=== PATIENT | male | born 1960 | race Caucasian/White ===

== ENCOUNTER 2017-09-25 12:34 | Inpatient (IN) | payer OTHER ==
[2017-09-25 13:52] VITALS: BMI 26.6
--- NOTE | 2017-09-25 17:30 | HP ---
CIWA Score - CIWA Score Nausea/Vomitin Muscle Tremors: 4-Moderate,w/Arms Extend Anxiety: 3 Agitation: 3 Paroxysmal Sweats: 3 Orientation: 0-Oriented Tacttile Disturbances: 1-Very Mild Itch/Numbness Auditory Disturbances: 1-Very Mild Visual Disturbances: 0-None Headache: 0-None Present CIWA-Ar Total Score: 18 Admission ROS BHS - HPI Chief Complaint: "i just need help" Allergies/Adverse Reactions: Allergies Allergy/AdvReac Type Severity Reaction Status Date / Time No Known Allergies Allergy Verified 09/25/17 17:31 History of Present Illness: 56 y/o male with a long hx of alcohol drinking presents for alcohol deox. Pt admits to drinking alcohol since his twenty's , stopped for 11years because he was in the , started to drink 2 yrs ago. Urine detox positive for opiates but pt states he does not want detox from heroin as he has only used for one month and is not "really addicted to it". Utox positive for THC, cocaine and benzo's. Denies cocaine and benzo use, Denies ever smoking Hx - Liver cirrhosis, Hep c tx Exam Limitations: Intoxication - Ebola screening Have you traveled outside of the country in the last 21 days: No (N) Have you had contact with anyone from an Ebola affected area: No Have you been sick,other than usual withdrawal symptoms: No Do you have a fever: No - Review of Systems Constitutional: Night Sweats EENT: reports: Other (Had laser surgery) Respiratory: reports: No Symptoms reported Cardiac: reports: Other (heart murmur) GI: reports: Poor Fluid Intake, Vomiting : reports: No Symptoms Reported Musculoskeletal: reports: No Symptoms Reported, Other (Generalized scant amount of dry, scaly spots) Integumentary: reports: Flushing Neuro: reports: No Symptoms reported Endocrine: reports: No Symptoms Reported Hematology: reports: Easy Bruising Psychiatric: reports: No Sypmtoms Reported, Orientated x3, Anxious, Depressed Other Systems: Reviewed and Negative Patient History - Patient Medical History Hx Anemia: No Hx Asthma: No Hx Chronic Obstructive Pulmonary Disease (COPD): No Hx Cancer: No Hx Cardiac Disorders: Yes (Murmur) Hx Congestive Heart Failure: No Hx Hypertension: No Hx Hypercholesterolemia: No Hx Pacemaker: No HX Cerebrovascular Accident: No Hx Seizures: No Hx Dementia: No Hx Diabetes: No Hx Gastrointestinal Disorders: Yes (Pancreatitis) Hx Liver Disease: Yes (Cirrhosis) Hx Genitourinary Disorders: No Hx Sexually Transmitted Disorders: No Hx Renal Disease (ESRD): No Hx Thyroid Disease: No Hx Human Immunodeficiency Virus (HIV): No (Tested negative 2 months ago) Hx Hepatitis C: Yes (Completed tx twice - interferon) Hx Depression: Yes (Not on meds) Hx Suicide Attempt: No (Denies Current SI) Hx Bipolar Disorder: No Hx Schizophrenia: No - Patient Surgical History Past Surgical History: No Hx Neurologic Surgery: No Hx Cataract Extraction: No Hx Cardiac Surgery: No Hx Lung Surgery: No Hx Breast Surgery: No Hx Breast Biopsy: No Hx Abdominal Surgery: No Hx Appendectomy: No Hx Cholecystectomy: No Hx Genitourinary Surgery: No Hx Section: No Hx Orthopedic Surgery: No Hx Hysterectomy: No Other Surgical History: Laser surgery - bilateral Anesthesia Reaction: No - PPD History Previous Implant?: Yes Documented Results: Negative w/o proof Implanted On Prior R Admission?: No PPD to be Administered?: Yes - Reproductive History Patient is a Female of Child Bearing Age (11 -55 yrs old): No - Smoking Cessation Smoking history: Never smoked - Substance & Tx. History Hx Alcohol Use: Yes Hx Substance Use: Yes - Substances Abused Alcohol Route: Oral Frequency: Daily Amount used: A pint Age of first use: 25 Date of Last Use: 09/24/17 Heroin Frequency: 1-3 times last 30 days Amount used: 1 bag Age of first use: 56 Date of Last Use: 09/06/17 Family Disease History - Family Disease History Family Disease History: Other: Father (, SI), Mother (), Sister (, Pancreatic CA) Admission Physical Exam S - Vital Signs Vital Signs: Vital Signs - 24 hr 09/25/17 13:49 Temperature 97.8 F Pulse Rate 79 Respiratory 19 Rate Blood Pressure 148/98 - Physical General Appearance: Yes: Moderate Distress, Alcohol on Breath, Irritable, Anxious HEENTM: Yes: Within Normal Limits Respiratory: Yes: Lungs Clear, No Respiratory Distress, No Accessory Muscle Use Neck: Yes: Within Normal Limits Breast: Yes: Breast Exam Deferred Cardiology: Yes: Regular Rate Abdominal: Yes: Non Tender Genitourinary: Yes: Within Normal Limits Back: Yes: Normal Inspection Musculoskeletal: Yes: full range of Motion Extremities: Yes: Delayed Capillary Refill (Nail fungus), Other Neurological: Yes: Alert, Normal Response Integumentary: Yes: Warm Lymphatic: Yes: Within Normal Limits - Diagnostic (1) Alcohol dependence with uncomplicated withdrawal Current Visit: Yes Status: Acute (2) Dehydration Current Visit: Yes Status: Suspected (3) Fungal infection of nail Current Visit: Yes Status: Chronic (4) Depressed affect Current Visit: Yes Status: Acute (5) Hx of hepatitis C Current Visit: Yes Status: Suspected (6) Cirrhosis Current Visit: Yes Status: Chronic (7) History of pancreatitis Current Visit: Yes Status: Acute Cleared for Admission [facility] - Detox or Rehab [facility] Level of Care: Medically Managed Detox Regimen/Protocol: Librium [facility] Breath Alcohol Content Breath Alcohol Content: 0.498 Urine Drug Screen - Results Drug Screen Negative: No Urine Drug Screen Results: THC-Marijuana, CHETNA-Cocaine, BZO-Benzodiazepines
[2017-09-25] MEDS ORDERED: guaiFENesin/D-METHORPHAN HB 10 ML UNIT-DOSE CUPS PO PRN (18:12)
[2017-09-25] MEDS ORDERED: LOPERAMIDE HCL 2 MG CAPSULE PO PRN (18:12)
[2017-09-25] MEDS ORDERED: MENTHOL/PHENOL 1 EACH UD MM PRN (18:12)
[2017-09-25] MEDS ORDERED: MAGNESIUM CITRATE 300 ML BOTTLE PO PRN (18:12)
[2017-09-25] MEDS ORDERED: chlordiazePOXIDE HCL 25 MG CAPSULE PO ONE (18:12)
[2017-09-25] MEDS ORDERED: MAGNESIUM HYDROX 2400MG/30ML ORAL SUSPENSION 30 ML CUP PO PRN (18:12)
[2017-09-25] MEDS ORDERED: P-EPHED 60MG/TRIPROLIDI 2.5MG TABLET PO PRN (18:12)
[2017-09-25] MEDS ORDERED: ACETAMINOPHEN 325 MG TABLET (FP) PO PRN (18:12)
[2017-09-25] MEDS ORDERED: MAG HYDROX/AL HYDROX/SIMETH 30 ML UNIT-DOSE CUP PO PRN (18:12)
[2017-09-25] MEDS ORDERED: MELATONIN 5 MG TABLETS PO PRN (22:00)
[2017-09-25] MEDS: THIAMINE HCL 100 MG TABLET (FP) PO SCH (23:17)
[2017-09-25] MEDS: chlordiazePOXIDE HCL 25 MG CAPSULE PO SCH (23:18)
[2017-09-25] MEDS: prednisoLONE ACETATE 1% OPHTH SUSP 5 ML BOTTLE OD SCH (23:20)
[2017-09-25] MEDS: OFLOXACIN 0.3% OPHTHALMIC SOLUTION 5 ML BOTTLE OD SCH (23:20)
[2017-09-26] MEDS: chlordiazePOXIDE HCL 25 MG CAPSULE PO PRN ×2 (03:37→13:36)
[2017-09-26] MEDS: chlordiazePOXIDE HCL 25 MG CAPSULE PO SCH ×4 (05:26→22:15)
[2017-09-26] MEDS: OFLOXACIN 0.3% OPHTHALMIC SOLUTION 5 ML BOTTLE OD SCH ×5 (06:06→22:15)
[2017-09-26 07:43] LABS: URINE APPEARANCE CLEAR; URINE BILIRUBIN NEGATIVE (<2.0 mg/dL); URINE COLOR DKYELLOW; URINE GLUCOSE (UA) NEGATIVE (NEGATIVE); URINE KETONE NEGATIVE (NEGATIVE); URINE LEUK ESTERASE NEGATIVE (NEGATIVE); URINE NITRITE NEGATIVE (NEGATIVE); URINE PROTEIN NEGATIVE (NEGATIVE); URINE UROBILINOGEN 4.0 E.U/dl mg/dL (0.2-1.0)
--- NOTE | 2017-09-26 09:24 | PN ---
S CIWA - CIWA Score Nausea/Vomitin Muscle Tremors: 3 Anxiety: 3 Agitation: 3 Paroxysmal Sweats: 1-Minimal Palms Moist Orientation: 0-Oriented Tacttile Disturbances: 1-Very Mild Itch/Numbness Auditory Disturbances: 1-Very Mild Visual Disturbances: 1-Very Mild Sensitivity Headache: 2-Mild CIWA-Ar Total Score: 18 [facility] Progress Note (SOAP) Subjective: ALERT,IRRITABLE,ANXIOUS,INTERRUPTED SLEEP,TREMOR Objective: 09/26/17 09:19 Vital Signs Temperature 99.1 F 09/26/17 06:16 Pulse Rate 89 09/26/17 07:58 Respiratory Rate 20 09/26/17 06:16 Blood Pressure 138/78 09/26/17 06:16 O2 Sat by Pulse Oximetry (%) 09/26/17 09:20 EKG NSR WITH OCCASIONAL VPC LVH Laboratory Last Values Urine Color Dkyellow 09/26/17 06:30 Urine Appearance Clear 09/26/17 06:30 Urine pH 7.0 (5.0-8.0) 09/26/17 06:30 Ur Specific [place] 1.013 (1.001-1.035) 09/26/17 06:30 Urine Protein Negative (NEGATIVE) 09/26/17 06:30 Urine Glucose (UA) Negative (NEGATIVE) 09/26/17 06:30 Urine Ketones Negative (NEGATIVE) 09/26/17 06:30 Urine Blood Negative (NEGATIVE) 09/26/17 06:30 Urine Nitrite Negative (NEGATIVE) 09/26/17 06:30 Urine Bilirubin Negative (<2.0 mg/dL) 09/26/17 06:30 Urine Urobilinogen 4.0 e.u/dl mg/dL (0.2-1.0) 09/26/17 06:30 Ur Leukocyte Esterase Negative (NEGATIVE) 09/26/17 06:30 LABS PENDING Assessment: 09/26/17 09:24 WITHDRAWAL SYMPTOM Plan: CONTINUE DETOX
[2017-09-26] MEDS: PRENATAL VITAMINS W/ FOLIC ACID TABLET (FP) PO SCH (10:06)
[2017-09-26] MEDS: prednisoLONE ACETATE 1% OPHTH SUSP 5 ML BOTTLE OD SCH ×4 (10:06→22:16)
--- NOTE | 2017-09-26 10:09 | CONSULT ---
[facility] Psychiatric Consult - Data Date of interview: 09/26/17 Admission source: [facility] Identifying data: This is 56 years old male, divorsed, homeless, living at [facility], unemployed, on PA with no psychiatric hospitalization history, with a long history of alcohol abuse seeking for detox reportins withdrawal symptoms. Utox positive for THC, cocaine and benzo's. Denies cocaine and benzo use, Denies ever smoking Substance Abuse History: Urine Drug Screen Results: THC-Marijuana, CHETNA-Cocaine, BZO-Benzodiazepines. - Smoking Cessation. Smoking history: Never smoked. - Substance & Tx. History. Hx Alcohol Use: Yes. Hx Substance Use: Yes. - Substances Abused. Alcohol. Route: Oral. Frequency: Daily. Amount used: A pint. Age of first use: 25. Date of Last Use: 09/24/17. Heroin. Frequency: 1-3 times last 30 days. Amount used: 1 bag. Age of first use: 56. Date of Last Use: 09/06/17 Medical History: HepC+, Pancreatitis history, Liver Cirrhosis history, Psychiatric History: Patient reports history of depression, no medications tasking prior to admission, denies suicidal and homicidal history. Physical/Sexual Abuse/Trauma History: Denies Additional Comment: Urine Drug Screen Results: THC-Marijuana, CHETNA-Cocaine, BZO- Benzodiazepines. Observation. Detox Unit Care Protocol Mental Status Exam - Mental Status Exam Alert and Oriented to: Person Cognitive Function: Fair Patient Appearance: Unkempt Mood: Sad Affect: Flat Patient Behavior: Sedated Speech Pattern: Delayed Voice Loudness: Mildly Soft/Quiet Thought Process: Circumstantial Thought Disorder: Being Controlled Hallucinations: Denies Suicidal Ideation: Denies Homicidal Ideation: Denies Insight/Judgement: Fair Sleep: Difficulty falling asleep Appetite: Fair Muscle strength/Tone: Mild Hypotonicity Gait/Station: Shuffling Additional Comments: Observation. Detox Unit Care Protocol Psychiatric Findings - Problem List ([place] 1, 2,3) (1) Heroin abuse Current Visit: Yes Status: Acute (2) Cannabis abuse Current Visit: Yes Status: Acute (3) Cocaine abuse Current Visit: Yes Status: Acute (4) Drug-induced mood disorder Current Visit: Yes Status: Acute (5) Alcohol dependence with uncomplicated withdrawal Current Visit: Yes Status: Acute - Initial Treatment Plan Initial Treatment Plan: Observation. Detox Unit Care Protocol
[2017-09-26 10:49] LABS: ANION GAP 9 (8-16); BLOOD UREA NITROGEN 5 mg/dL (7-18); CALCIUM 7.7 mg/dL (8.5-10.1); CHLORIDE 104 mmol/L (98-107); CO2 26 mmol/L (21-32); GLUCOSE,RANDOM 97 mg/dL (74-106); POTASSIUM 3.3 mmol/L (3.5-5.1); SGOT/AST 97 U/L (15-37); SGPT/ALT 43 U/L (12-78); SODIUM 139 mmol/L (136-145)
[2017-09-26 10:54] LABS: ALK PHOS 161 U/L (45-117); CREATININE 0.5 mg/dL (0.7-1.3); TOT PROT 6.9 g/dl (6.4-8.2)
[2017-09-26 10:56] LABS: HEMATOCRIT 38.9 % (35.4-49); HEMOGLOBIN 13.5 GM/dL (11.7-16.9); MCH 32.7 pg (25.7-33.7); MCHC 34.6 g/dl (32.0-35.9); MEAN CELL VOLUME 94.5 fl (80-96); MEAN PLT VOLUME 7.9 fl (7.5-11.1); PLATELET COUNT 69 K/MM3 (134-434); RBC 4.11 M/mm3 (4.00-5.60); RDW 13.1 % (11.9-15.9)
[2017-09-26] MEDS: ONDANSETRON *ODT* 4 MG TABLET SL PRN (11:20)
--- NOTE | 2017-09-26 21:52 | PN ---
[facility] Progress Note Note: Patient c/o of pain on the left elbow. As per patient he injured himself two months ago and the skin on the elbow was opened by piece of metal. As a result of his injury he went to to the ED two months ago and was given tetanus shot. Patient denies CP, SOB, vertigo or paresthesia. Vital Signs Temperature 99.3 F 09/26/17 17:07 Pulse Rate 69 09/26/17 17:48 Respiratory Rate 19 09/26/17 17:07 Blood Pressure 139/84 09/26/17 17:07 O2 Sat by Pulse Oximetry (%) Laboratory Last Values WBC 3.0 K/mm3 (4.0-10.0) L 09/26/17 07:00 RBC 4.11 M/mm3 (4.00-5.60) 09/26/17 07:00 Hgb 13.5 GM/dL (11.7-16.9) 09/26/17 07:00 Hct 38.9 % (35.4-49) 09/26/17 07:00 MCV 94.5 fl (80-96) 09/26/17 07:00 MCH 32.7 pg (25.7-33.7) 09/26/17 07:00 MCHC 34.6 g/dl (32.0-35.9) 09/26/17 07:00 RDW 13.1 % (11.9-15.9) 09/26/17 07:00 Plt Count 69 K/MM3 (134-434) L 09/26/17 07:00 MPV 7.9 fl (7.5-11.1) 09/26/17 07:00 Platelet Comment No clumping noted 09/26/17 07:00 Sodium 139 mmol/L (136-145) 09/26/17 07:00 Potassium 3.3 mmol/L (3.5-5.1) L 09/26/17 07:00 Chloride 104 mmol/L (98-107) 09/26/17 07:00 Carbon Dioxide 26 mmol/L (21-32) 09/26/17 07:00 Anion Gap 9 (8-16) 09/26/17 07:00 BUN 5 mg/dL (7-18) L 09/26/17 07:00 Creatinine 0.5 mg/dL (0.7-1.3) L 09/26/17 07:00 Creat Clearance w eGFR > 60 (>60) 09/26/17 07:00 Random Glucose 97 mg/dL (74-106) 09/26/17 07:00 Calcium 7.7 mg/dL (8.5-10.1) L 09/26/17 07:00 Total Bilirubin 2.0 mg/dL (0.2-1.0) H 09/26/17 07:00 AST 97 U/L (15-37) H 09/26/17 07:00 ALT 43 U/L (12-78) 09/26/17 07:00 Alkaline Phosphatase 161 U/L (45-117) H 09/26/17 07:00 Total Protein 6.9 g/dl (6.4-8.2) 09/26/17 07:00 Albumin 3.0 g/dl (3.4-5.0) L 09/26/17 07:00 Urine Color Dkyellow 09/26/17 06:30 Urine Appearance Clear 09/26/17 06:30 Urine pH 7.0 (5.0-8.0) 09/26/17 06:30 Ur Specific [place] 1.013 (1.001-1.035) 09/26/17 06:30 Urine Protein Negative (NEGATIVE) 09/26/17 06:30 Urine Glucose (UA) Negative (NEGATIVE) 09/26/17 06:30 Urine Ketones Negative (NEGATIVE) 09/26/17 06:30 Urine Blood Negative (NEGATIVE) 09/26/17 06:30 Urine Nitrite Negative (NEGATIVE) 09/26/17 06:30 Urine Bilirubin Negative (<2.0 mg/dL) 09/26/17 06:30 Urine Urobilinogen 4.0 e.u/dl mg/dL (0.2-1.0) 09/26/17 06:30 Ur Leukocyte Esterase Negative (NEGATIVE) 09/26/17 06:30 RPR Titer Nonreactive (NONREACTIVE) 09/26/17 07:00 A/P Patient AOx3 self directing normal HR and rhythm No adventitious breath sounds Normal BS x 4 non-tender non-distended left elbow: + erythema, + tenderness touch, + hot to touch, + mild serous sanguineous discharge - Hypokelemia - Cellulitis left elbow - Abnormal Labs Plan: 1. K-emery 20 mg order 2. HIV testing offered to patient, patient decline. Reports had HIV test 6 months ago and results were negative. Repeat CBC and CMP in the AM 3. left elbow, cleanse with NS, dress with gauze qd/ PRN, keep area clean and dry. mupirocin top cream BID, keflex 500mg q6h x 7 days 4. increase fluids 5. Continue to monitor
[2017-09-26] MEDS: THIAMINE HCL 100 MG TABLET (FP) PO SCH (22:15)
[2017-09-26] MEDS: CEPHALEXIN MONOHYDRATE 500 MG CAPSULE (UD) PO SCH (22:18)
[2017-09-26] MEDS: MUPIROCIN CA 2% TOPICAL CREAM 15 GM TUBE TP SCH (23:00)
--- NOTE | 2017-09-26 23:48 | EKG ---
Test Reason : Blood Pressure : / mmHG Vent. Rate : 086 BPM Atrial Rate : 086 BPM P-R Int : 196 ms QRS Dur : 110 ms QT Int : 378 ms P-R-T Axes : 053 -18 044 degrees QTc Int : 452 ms SINUS RHYTHM WITH OCCASIONAL PREMATURE VENTRICULAR COMPLEXES MODERATE VOLTAGE CRITERIA FOR LVH, MAY BE NORMAL VARIANT BORDERLINE ECG NO PREVIOUS ECGS AVAILABLE Confirmed by LORENA CHANG MD ([id number]) on 09/26/2017 11:48:12 PM Referred By: Confirmed By:LORENA CHANG MD
[2017-09-27] MEDS: chlordiazePOXIDE HCL 25 MG CAPSULE PO PRN ×2 (02:52→08:55)
[2017-09-27] MEDS: chlordiazePOXIDE HCL 25 MG CAPSULE PO SCH ×3 (05:12→17:52)
[2017-09-27] MEDS: CEPHALEXIN MONOHYDRATE 500 MG CAPSULE (UD) PO SCH ×3 (05:12→17:52)
[2017-09-27] MEDS: IBUPROFEN 400 MG TABLET (FP) PO PRN (05:15)
[2017-09-27] MEDS: OFLOXACIN 0.3% OPHTHALMIC SOLUTION 5 ML BOTTLE OD SCH ×5 (05:19→23:15)
[2017-09-27] MEDS ORDERED: cloNIDine HCL 0.1 MG TABLET PO ONE (06:34)
--- NOTE | 2017-09-27 06:45 | PN ---
[facility] Progress Note Note: Patient's blood pressure was B/P 157/96. Patient is asymptomatic. Vital Signs Temperature 99.9 F H 09/27/17 06:43 Pulse Rate 81 09/27/17 06:43 Respiratory Rate 20 09/27/17 06:43 Blood Pressure 157/96 09/27/17 06:43 O2 Sat by Pulse Oximetry (%) Action: Clonidine 0.1mg tablet oral odered
--- NOTE | 2017-09-27 09:17 | PN ---
S Progress Note (SOAP) Subjective: ALERT,IRRITABLE,ANXIOUS,INFECTED WOUND LEFT ELBOW TREATED AT [facility] COMING TO DETOX Objective: 09/27/17 09:16 Vital Signs Temperature 98.8 F 09/27/17 09:07 Pulse Rate 89 09/27/17 09:07 Respiratory Rate 20 09/27/17 09:07 Blood Pressure 137/85 09/27/17 09:07 O2 Sat by Pulse Oximetry (%) Assessment: 09/27/17 09:16 WITHDRAWAL SYMPTOM Plan: CONTINUE DETOX
[2017-09-27] MEDS ORDERED: POTASSIUM CHLORIDE TABS 20 MEQ TABLET.ER (FP) PO SCH (10:00)
[2017-09-27 10:03] LABS: BASO % 1.1 % (0-2.0); EOS % 2.2 % (0-4.5); HEMATOCRIT 40.2 % (35.4-49); HEMOGLOBIN 13.9 GM/dL (11.7-16.9); MCH 32.9 pg (25.7-33.7); MCHC 34.7 g/dl (32.0-35.9); MEAN CELL VOLUME 94.9 fl (80-96); MEAN PLT VOLUME 8.2 fl (7.5-11.1); MONO % 12.6 % (3.8-10.2); NEUT % 73.1 % (42.8-82.8); PLATELET COUNT 62 K/MM3 (134-434); RBC 4.24 M/mm3 (4.00-5.60); RDW 12.9 % (11.9-15.9); WHITE BLOOD COUNT 2.9 K/mm3 (4.0-10.0)
[2017-09-27] MEDS: MUPIROCIN CA 2% TOPICAL CREAM 15 GM TUBE TP SCH (10:15)
[2017-09-27 10:18] LABS: CHLORIDE 103 mmol/L (98-107); POTASSIUM 3.7 mmol/L (3.5-5.1); SODIUM 138 mmol/L (136-145)
[2017-09-27] MEDS: BACITRACIN 0.9 GM PACKET TP SCH ×2 (10:47→23:13)
[2017-09-27] MEDS: prednisoLONE ACETATE 1% OPHTH SUSP 5 ML BOTTLE OD SCH ×4 (10:47→23:14)
[2017-09-27] MEDS: PRENATAL VITAMINS W/ FOLIC ACID TABLET (FP) PO SCH (10:47)
[2017-09-27 11:06] LABS: ALBUMIN 3.4 g/dl (3.4-5.0); ALK PHOS 171 U/L (45-117); ANION GAP 10 (8-16); BLOOD UREA NITROGEN 6 mg/dL (7-18); CALCIUM 8.7 mg/dL (8.5-10.1); CO2 25 mmol/L (21-32); CREATININE 0.6 mg/dL (0.7-1.3); GLUCOSE,RANDOM 124 mg/dL (74-106); SGOT/AST 75 U/L (15-37); SGPT/ALT 46 U/L (12-78); TOT PROT 7.5 g/dl (6.4-8.2)
[2017-09-27] MEDS: hydrOXYzine PAMOATE 50 MG CAPSULE (FP) PO PRN ×2 (14:06→17:52)
--- NOTE | 2017-09-27 18:54 | PN ---
S Progress Note Note: Vital Signs Temperature 97.7 F 09/27/17 18:07 Pulse Rate 72 09/27/17 18:07 Respiratory Rate 18 09/27/17 18:07 Blood Pressure 141/88 09/27/17 18:07 O2 Sat by Pulse Oximetry (%)
--- NOTE | 2017-09-27 19:05 | PN ---
[facility] Progress Note Note: Report received by ABENA Sales patient is confuse. Laboratory Last Values WBC 2.9 K/mm3 (4.0-10.0) L 09/27/17 07:30 RBC 4.24 M/mm3 (4.00-5.60) 09/27/17 07:30 Hgb 13.9 GM/dL (11.7-16.9) 09/27/17 07:30 Hct 40.2 % (35.4-49) 09/27/17 07:30 MCV 94.9 fl (80-96) 09/27/17 07:30 MCH 32.9 pg (25.7-33.7) 09/27/17 07:30 MCHC 34.7 g/dl (32.0-35.9) 09/27/17 07:30 RDW 12.9 % (11.9-15.9) 09/27/17 07:30 Plt Count 62 K/MM3 (134-434) L 09/27/17 07:30 MPV 8.2 fl (7.5-11.1) 09/27/17 07:30 Neutrophils % 73.1 % (42.8-82.8) 09/27/17 07:30 Lymphocytes % 11.0 % (8-40) 09/27/17 07:30 Monocytes % 12.6 % (3.8-10.2) H 09/27/17 07:30 Eosinophils % 2.2 % (0-4.5) 09/27/17 07:30 Basophils % 1.1 % (0-2.0) 09/27/17 07:30 Nucleated RBC % 0 % (0-0) 09/27/17 07:30 Platelet Comment No clumping noted 09/26/17 07:00 Sodium 138 mmol/L (136-145) 09/27/17 07:30 Potassium 3.7 mmol/L (3.5-5.1) 09/27/17 07:30 Chloride 103 mmol/L (98-107) 09/27/17 07:30 Carbon Dioxide 25 mmol/L (21-32) 09/27/17 07:30 Anion Gap 10 (8-16) 09/27/17 07:30 BUN 6 mg/dL (7-18) L 09/27/17 07:30 Creatinine 0.6 mg/dL (0.7-1.3) L 09/27/17 07:30 Creat Clearance w eGFR > 60 (>60) 09/27/17 07:30 Random Glucose 124 mg/dL (74-106) H D 09/27/17 07:30 Calcium 8.7 mg/dL (8.5-10.1) 09/27/17 07:30 Total Bilirubin 4.0 mg/dL (0.2-1.0) H D 09/27/17 07:30 AST 75 U/L (15-37) H D 09/27/17 07:30 ALT 46 U/L (12-78) 09/27/17 07:30 Alkaline Phosphatase 171 U/L (45-117) H 09/27/17 07:30 Total Protein 7.5 g/dl (6.4-8.2) 09/27/17 07:30 Albumin 3.4 g/dl (3.4-5.0) 09/27/17 07:30 Urine Color Dkyellow 09/26/17 06:30 Urine Appearance Clear 09/26/17 06:30 Urine pH 7.0 (5.0-8.0) 09/26/17 06:30 Ur Specific [place] 1.013 (1.001-1.035) 09/26/17 06:30 Urine Protein Negative (NEGATIVE) 09/26/17 06:30 Urine Glucose (UA) Negative (NEGATIVE) 09/26/17 06:30 Urine Ketones Negative (NEGATIVE) 09/26/17 06:30 Urine Blood Negative (NEGATIVE) 09/26/17 06:30 Urine Nitrite Negative (NEGATIVE) 09/26/17 06:30 Urine Bilirubin Negative (<2.0 mg/dL) 09/26/17 06:30 Urine Urobilinogen 4.0 e.u/dl mg/dL (0.2-1.0) 09/26/17 06:30 Ur Leukocyte Esterase Negative (NEGATIVE) 09/26/17 06:30 RPR Titer Nonreactive (NONREACTIVE) 09/26/17 07:00 Patient AO x Person. in no apparent distress, irate, patient pacing in the unit , needs frequent redirecting, and frequently asking for the door, patient unaware of time on the unit reports that he's been her at [place] for a several months. Patient was question as to here he was at and reports he's somewhere in [place] and he knows his away around. As per staff on the unit mental status keeps changing through out the day. v/s bp 157/88, P112, rr19, T 97.9 No adventitious breath sounds No adventitious breath sounds Normal Heart Rate and rhythm No edema, + pulses throughout Plan: Patient to be transfer [facility] for altered mental status for further evaluation, patient endorse to Dr. Brower.
[2017-09-27] MEDS: chlordiazePOXIDE 5 MG CAPSULE PO SCH (23:14)
[2017-09-27] MEDS: THIAMINE HCL 100 MG TABLET (FP) PO SCH (23:15)
--- NOTE | 2017-09-27 23:38 | PN ---
[facility] Progress Note Note: SPOKE TO DR. GRIMES FROM [facility]. CLIENT WILL BE RETURNING. ELEVATED AMMONIA LEVEL 40.99 AND [address] NOTED ON HEAD CT. Pt to receive Lactulose 20 grams daily, as well as Bactrim DS one tab BID for sinusitis and left elbow infection.
[2017-09-28] MEDS: chlordiazePOXIDE HCL 25 MG CAPSULE PO PRN ×3 (00:08→13:21)
[2017-09-28] MEDS: hydrOXYzine PAMOATE 50 MG CAPSULE (FP) PO PRN ×3 (02:48→18:28)
--- NOTE | 2017-09-28 06:39 | PN ---
[facility] Progress Note Note: CLIENT PLACED ON 1:1 OBSERVATION FOR SAFETY DUE TO ONGOING CONFUSION/ ALTERED MENTAL STATUS.
[2017-09-28] MEDS: chlordiazePOXIDE 5 MG CAPSULE PO SCH ×3 (06:49→17:28)
[2017-09-28] MEDS: OFLOXACIN 0.3% OPHTHALMIC SOLUTION 5 ML BOTTLE OD SCH ×5 (06:49→22:08)
[2017-09-28] MEDS: ONDANSETRON *ODT* 4 MG TABLET SL PRN (09:15)
[2017-09-28] MEDS ORDERED: LACTULOSE 20 GM/30 ML UDC (FOR ORAL USE ONLY) PO SCH (10:00)
[2017-09-28] MEDS: PRENATAL VITAMINS W/ FOLIC ACID TABLET (FP) PO SCH (10:03)
[2017-09-28] MEDS: SULFAMETHOXAZOLE/TRIMETHOPRIM 800MG/160MG D.S. TABLET PO SCH ×2 (10:03→22:05)
[2017-09-28] MEDS: BACITRACIN 0.9 GM PACKET TP SCH ×2 (10:03→22:05)
[2017-09-28] MEDS: prednisoLONE ACETATE 1% OPHTH SUSP 5 ML BOTTLE OD SCH ×4 (10:04→22:07)
--- NOTE | 2017-09-28 10:37 | PN ---
S Progress Note (SOAP) Subjective: ALERT,ORIENTED X3,MEDICALLY CLEAR FROM [facility] ER TO RETURN TO DETOX IRRITABLE,INTERRUPTED SLEEP Objective: 09/28/17 10:35 Vital Signs Temperature 97.7 F 09/28/17 09:10 Pulse Rate 105 H 09/28/17 09:10 Respiratory Rate 18 09/28/17 09:10 Blood Pressure 141/98 09/28/17 09:10 O2 Sat by Pulse Oximetry (%) ON LACTULOSE 20 GRAMS PO DAILY WILL INCREASE TO BID Assessment: 09/28/17 10:36 WITHDRAWAL SYMPTOM Plan: CONTINUE DETOX,D/C ONE ON ONE,INCREASE LACTULOSE TO 20 GRAMS PO BID, DISCHARGE IN AM
[2017-09-28] MEDS: IBUPROFEN 400 MG TABLET (FP) PO PRN (15:16)
[2017-09-28] MEDS: chlordiazePOXIDE HCL 10 MG CAPSULE PO SCH (22:05)
[2017-09-28] MEDS: LACTULOSE 20 GM/30 ML UDC (FOR ORAL USE ONLY) PO SCH (22:09)
[2017-09-28] MEDS: THIAMINE HCL 100 MG TABLET (FP) PO SCH (22:09)
[2017-09-28] MEDS ORDERED: HYDROCORTISONE 1% TOPICAL LOTION 118 ML BOTTLE TP PRN (22:34)
--- NOTE | 2017-09-28 22:37 | PN ---
[facility] Progress Note Note: chronic pruritus rash. As per patient rash has been present for two months. Vital Signs Temperature 97.5 F L 09/28/17 18:41 Pulse Rate 72 09/28/17 18:41 Respiratory Rate 18 09/28/17 18:41 Blood Pressure 123/69 09/28/17 18:41 O2 Sat by Pulse Oximetry (%) AOX3 No skin break down + rash hydrocortisone top cream BID PRN increase fluids continue to monitor
[2017-09-29] MEDS: hydrOXYzine PAMOATE 50 MG CAPSULE (FP) PO PRN ×2 (02:41→12:12)
[2017-09-29] MEDS: OFLOXACIN 0.3% OPHTHALMIC SOLUTION 5 ML BOTTLE OD SCH ×2 (05:25→12:12)
[2017-09-29] MEDS: chlordiazePOXIDE HCL 10 MG CAPSULE PO SCH ×2 (05:25→12:12)
[2017-09-29] MEDS: IBUPROFEN 400 MG TABLET (FP) PO PRN (08:22)
--- NOTE | 2017-09-29 08:42 | PN ---
S Progress Note (SOAP) Subjective: ALERT,ORIENTED,NO COMPLAINT Objective: 09/29/17 08:44 Vital Signs Temperature 97.9 F 09/29/17 06:00 Pulse Rate 83 09/29/17 06:00 Respiratory Rate 18 09/29/17 06:00 Blood Pressure 138/82 09/29/17 06:00 O2 Sat by Pulse Oximetry (%) Assessment: 09/29/17 08:44 DETOX COMPLETED,NO WITHDRAWAL SYMPTOM Plan: DISCHARGE TODAY,FOLLOW UP WITH [facility]
--- NOTE | 2017-09-29 08:51 | DS ---
[facility] Detox Discharge Summary Admission Date: 09/25/17 Discharge Date: 09/29/17 - History Present History: Alcohol Dependence Additional Comments: FOLLOW UP WITH [facility] Pertinent Past History: HEPATITIS C HISTORY OF PANCREATITIS CELLULITIS LEFT ELBOW INFECTED WOUND LEFT ELBOW - Physical Exam Results Vital Signs: Vital Signs Temperature 97.9 F 09/29/17 06:00 Pulse Rate 83 09/29/17 06:00 Respiratory Rate 18 09/29/17 06:00 Blood Pressure 138/82 09/29/17 06:00 O2 Sat by Pulse Oximetry (%) Pertinent Admission Physical Exam Findings: WITHDRAWAL SIGNS AND SYMPTOMS Vital Signs Temperature 97.9 F 09/29/17 06:00 Pulse Rate 83 09/29/17 06:00 Respiratory Rate 18 09/29/17 06:00 Blood Pressure 138/82 09/29/17 06:00 O2 Sat by Pulse Oximetry (%) Laboratory Last Values WBC 2.9 K/mm3 (4.0-10.0) L 09/27/17 07:30 RBC 4.24 M/mm3 (4.00-5.60) 09/27/17 07:30 Hgb 13.9 GM/dL (11.7-16.9) 09/27/17 07:30 Hct 40.2 % (35.4-49) 09/27/17 07:30 MCV 94.9 fl (80-96) 09/27/17 07:30 MCH 32.9 pg (25.7-33.7) 09/27/17 07:30 MCHC 34.7 g/dl (32.0-35.9) 09/27/17 07:30 RDW 12.9 % (11.9-15.9) 09/27/17 07:30 Plt Count 62 K/MM3 (134-434) L 09/27/17 07:30 MPV 8.2 fl (7.5-11.1) 09/27/17 07:30 Neutrophils % 73.1 % (42.8-82.8) 09/27/17 07:30 Lymphocytes % 11.0 % (8-40) 09/27/17 07:30 Monocytes % 12.6 % (3.8-10.2) H 09/27/17 07:30 Eosinophils % 2.2 % (0-4.5) 09/27/17 07:30 Basophils % 1.1 % (0-2.0) 09/27/17 07:30 Nucleated RBC % 0 % (0-0) 09/27/17 07:30 Platelet Comment No clumping noted 09/26/17 07:00 Sodium 138 mmol/L (136-145) 09/27/17 07:30 Potassium 3.7 mmol/L (3.5-5.1) 09/27/17 07:30 Chloride 103 mmol/L (98-107) 09/27/17 07:30 Carbon Dioxide 25 mmol/L (21-32) 09/27/17 07:30 Anion Gap 10 (8-16) 09/27/17 07:30 BUN 6 mg/dL (7-18) L 09/27/17 07:30 Creatinine 0.6 mg/dL (0.7-1.3) L 09/27/17 07:30 Creat Clearance w eGFR > 60 (>60) 09/27/17 07:30 Random Glucose 124 mg/dL (74-106) H D 09/27/17 07:30 Calcium 8.7 mg/dL (8.5-10.1) 09/27/17 07:30 Total Bilirubin 4.0 mg/dL (0.2-1.0) H D 09/27/17 07:30 AST 75 U/L (15-37) H D 09/27/17 07:30 ALT 46 U/L (12-78) 09/27/17 07:30 Alkaline Phosphatase 171 U/L (45-117) H 09/27/17 07:30 Total Protein 7.5 g/dl (6.4-8.2) 09/27/17 07:30 Albumin 3.4 g/dl (3.4-5.0) 09/27/17 07:30 Urine Color Dkyellow 09/26/17 06:30 Urine Appearance Clear 09/26/17 06:30 Urine pH 7.0 (5.0-8.0) 09/26/17 06:30 Ur Specific [place] 1.013 (1.001-1.035) 09/26/17 06:30 Urine Protein Negative (NEGATIVE) 09/26/17 06:30 Urine Glucose (UA) Negative (NEGATIVE) 09/26/17 06:30 Urine Ketones Negative (NEGATIVE) 09/26/17 06:30 Urine Blood Negative (NEGATIVE) 09/26/17 06:30 Urine Nitrite Negative (NEGATIVE) 09/26/17 06:30 Urine Bilirubin Negative (<2.0 mg/dL) 09/26/17 06:30 Urine Urobilinogen 4.0 e.u/dl mg/dL (0.2-1.0) 09/26/17 06:30 Ur Leukocyte Esterase Negative (NEGATIVE) 09/26/17 06:30 RPR Titer Nonreactive (NONREACTIVE) 09/26/17 07:00 - Treatment Hospital Course: Detox Protocol Followed, Detoxed Safely, Responded well, Discharged Condition Good, Rehab Referral Accepted Patient has Accepted a Rehab Referral to: [facility] - Medication Discharge Medications: Ambulatory Orders NK [No Known Home Medication] 09/25/17 - Diagnosis (1) Alcohol dependence with uncomplicated withdrawal Current Visit: Yes Status: Acute (2) History of pancreatitis Current Visit: Yes Status: Acute (3) Cirrhosis Current Visit: Yes Status: Chronic (4) Dehydration Current Visit: Yes Status: Suspected (5) Hx of hepatitis C Current Visit: Yes Status: Suspected (6) Cellulitis of left elbow Current Visit: No Status: Acute (7) Increased ammonia level Current Visit: No Status: Acute - AMA Did Patient Leave Against Medical Advice: No
[2017-09-29 09:15] VITALS: BP 137/88; PULSE 90; TEMP 97.7
[2017-09-29] MEDS: LACTULOSE 20 GM/30 ML UDC (FOR ORAL USE ONLY) PO SCH (12:12)
[2017-09-29] MEDS: BACITRACIN 0.9 GM PACKET TP SCH (12:12)
[2017-09-29] MEDS: SULFAMETHOXAZOLE/TRIMETHOPRIM 800MG/160MG D.S. TABLET PO SCH (12:12)
[2017-09-29] MEDS: prednisoLONE ACETATE 1% OPHTH SUSP 5 ML BOTTLE OD SCH (12:13)
[2017-09-29] MEDS: PRENATAL VITAMINS W/ FOLIC ACID TABLET (FP) PO SCH (12:13)
== END 2017-09-29 13:01 | disposition other institution (70) | DRG 774 ==
LOC: YASAS 12:34 → Y6N 18:55
PROVIDERS: ADMIT Surgery; ATTEND Surgery
PROC: HZ2ZZZZ Detoxification Services for Substance Abuse Treatment (ICD-10-PCS; principal; 2017-09-25)
DX: F10.230 Alcohol dependence with withdrawal, uncomplicated (principal); F14.10 Cocaine abuse, uncomplicated; F12.10 Cannabis abuse, uncomplicated; F19.280 Other psychoactive substance dependence with psychoactive substance-induced anxiety disorder; F19.282 Other psychoactive substance dependence with psychoactive substance-induced sleep disorder; E86.0 Dehydration; K74.60 Unspecified cirrhosis of liver; R79.89 Other specified abnormal findings of blood chemistry; L03.114 Cellulitis of left upper limb; R45.89 Other symptoms and signs involving emotional state; B35.1 Tinea unguium; Z87.19 Personal history of other diseases of the digestive system
CPT/HCPCS: 36415; 80053; 81003; 85025; 85027; 86593; 93005; 93010; J0735; Q0162

== ENCOUNTER 2017-09-27 20:33 | Emergency (ER) | payer OTHER ==
[2017-09-27 21:46] VITALS: BP 130/94; PULSE 108; TEMP 98.1; BMI 26.9
--- NOTE | 2017-09-27 21:46 | PDOC ---
History of Present Illness - General History Source: Patient - History of Present Illness Initial Comments: 09/27/17 21:57 The patient is a 56 year old male, with a significant past medical history of alcoholism, Hepatitis C, and cirrhosis, who presents to the emergency department via EMS from [facility] with, 1 day of altered mental status. As per patient, he hit his head today. The patient reports that 2 months ago he hit his left elbow which he attempted to keep clean and dry, however, now he believes is infected with associated erythema and swelling. He reports getting 2 tablets of an unknown antibiotic at another facility. He denies any recent fevers, chills, headache or dizziness. He denies any recent nausea, vomit, diarrhea or constipation. He denies any recent chest pain or shortness of breath. He denies any recent dysuria, frequency, urgency or hematuria. Allergies: NKA Past surgical history: None reported. Social History: Alcohol abuse. Recreational drug use (THC, opiates, benzos). <Yolis Nj - Last Filed: 09/27/17 21:56> - General History Source: Patient <DomMandeep gore - Last Filed: 09/28/17 19:30> - General Chief Complaint: Altered Mental Status Stated Complaint: Altered Mental Status Time Seen by Provider: 09/27/17 21:42 Past History <Yolis Nj - Last Filed: 09/27/17 21:56> - Past Medical History Anemia: No Asthma: No Cancer: No Cardiac Disorders: Yes (Murmur) CVA: No COPD: No CHF: No Dementia: No Diabetes: No GI Disorders: Yes (Pancreatitis) Disorders: No HTN: No Hypercholesterolemia: No Liver Disease: Yes (Cirrhosis) Seizures: No Thyroid Disease: No - Surgical History Abdominal Surgery: No Appendectomy: No Cardiac Surgery: No Cholecystectomy: No Lung Surgery: No Neurologic Surgery: No Orthopedic Surgery: No - Suicide/Smoking/Psychosocial Hx Smoking History: Never smoked Hx Alcohol Use: Yes (Daily) Drug/Substance Use Hx: No <Mandeep Culver - Last Filed: 09/28/17 19:30> - Past Medical History Allergies/Adverse Reactions: Allergies Allergy/AdvReac Type Severity Reaction Status Date / Time No Known Allergies Allergy Verified 09/27/17 21:37 Home Medications: Ambulatory Orders NK [No Known Home Medication] 09/25/17 Review of Systems - Review of Systems Able to Perform ROS?: Yes Comments:: 09/27/17 21:57 CONSTITUTIONAL: Absent: fever, no chills, no fatigue EYES: Absent: visual changes ENT: Absent: ear pain, no sore throat CARDIOVASCULAR: Absent: chest pain, no palpitations RESPIRATORY: Absent: cough, no SOB GI: Absent: abdominal pain, no nausea, no vomiting, no constipation, no diarrhea GENITOURINARY: Absent: dysuria, no frequency, no hematuria MUSKULOSKELETAL: Absent: back pain, no arthralgia, no myalgia SKIN: Present: Erythema and swelling to the left elbow. NEURO: Present: Altered mental status. Absent: headache All Other Systems: Reviewed and Negative <Yolis Nj - Last Filed: 09/27/17 21:56> *Physical Exam - Vital Signs Last Vital Signs Temp Pulse Resp BP Pulse Ox 98.1 F 108 H 18 130/94 100 09/27/17 21:35 09/27/17 21:35 09/27/17 21:35 09/27/17 21:35 09/27/17 21:35 - Physical Exam Comments: 09/27/17 21:57 GENERAL: Well-appearing, well-nourished. No apparent distress. HEENT: Normocephalic, atraumatic. PERRL, EOM intact. CARDIOVASCULAR: Normal S1, S2. Regular rate and rhythm. PULMONARY: Clear to auscultation bilaterally. ABDOMEN: Soft, non-distended, non-tender. EXTREMITIES: Normal ROM in all four extremities. No gross deformities. SKIN: Minimal erythema, nontender without fluctuance small yellow area of the left elbow. NEUROLOGICAL: Alert, awake, appropriate. Cranial nerves 2-12 intact. No deficits to light touch and temperature in face, upper extremities and lower extremities. No motor deficits in the in face, upper extremities and lower extremities. No pronator drift. Normoreflexic in the upper and lower extremities. Normal speech. Toes are down-going bilaterally. Gait is normal without ataxia. <Yolis Nj - Last Filed: 09/27/17 21:56> - Vital Signs Last Vital Signs Temp Pulse Resp BP Pulse Ox 98.1 F 108 H 18 130/94 100 09/27/17 21:35 09/27/17 21:35 09/27/17 21:35 09/27/17 21:35 09/27/17 21:35 <Mandeep Culver - Last Filed: 09/28/17 19:30> Moderate Sedation - Procedure Monitoring Vital Signs: Vital Signs Temp Pulse Resp BP Pulse Ox 98.1 F 108 H 18 130/94 100 09/27/17 21:35 09/27/17 21:35 09/27/17 21:35 09/27/17 21:35 09/27/17 21:35 <Yolis Nj - Last Filed: 09/27/17 21:56> - Procedure Monitoring Vital Signs: Vital Signs Temp Pulse Resp BP Pulse Ox 98.1 F 108 H 18 130/94 100 09/27/17 21:35 09/27/17 21:35 09/27/17 21:35 09/27/17 21:35 09/27/17 21:35 <Mandeep Culver - Last Filed: 09/28/17 19:30> ED Treatment Course - LABORATORY CBC & Chemistry Diagram: 09/27/17 21:50 09/27/17 21:50 <Mandeep Culver - Last Filed: 09/28/17 19:30> Medical Decision Making - Medical Decision Making 09/27/17 22:55 Pt to return to [facility]. Spoke to YOLANDE Sanchez. Pt to receive Lactulose 20 grams daily, as well as Bactrim DS one tab BID for sinusitis and left elbow infection. 09/28/17 19:30 Dr. Culver: The scribe's documentation has been prepared under my direction and personally reviewed by me in its entirery. I confirm that the note above accurately reflects all work, treatment, procedures, and medical decision making performed by me. <Mandeep Culver - Last Filed: 09/28/17 19:30> *DC/Admit/Observation/Transfer - Attestations Scribe Attestion: 09/27/17 21:58 Documentation prepared by Yolis Nj, acting as medical review coordinator for Mandeep Culver DO. <Yolis Nj - Last Filed: 09/27/17 21:56> - Discharge Dispostion Decision to Admit order: No <Mandeep Culver - Last Filed: 09/28/17 19:30> Diagnosis at time of Disposition: Cellulitis of left elbow, Increased ammonia level Sinusitis Qualifiers: Sinusitis location: other Chronicity: unspecified Qualified Code(s): J32.9 - Chronic sinusitis, unspecified - Discharge Dispostion Disposition: HOME Condition at time of disposition: Stable - Referrals Referrals: Geena Alonzo MD [Staff Physician] - - Patient Instructions Printed Discharge Instructions: Ammonia, DI for Cellulitis -- Adult, DI for Sinusitis Additional Instructions: Please take medications as directed. Keep wound clean and dry. Return if any problems.
[2017-09-27] MEDS ORDERED: SULFAMETHOXAZOLE/TRIMETHOPRIM 800MG/160MG D.S. TABLET PO ONE (21:48)
[2017-09-27 22:24] LABS: URINE APPEARANCE CLEAR; URINE BILIRUBIN NEGATIVE (<2.0 mg/dL); URINE COLOR DKYELLOW; URINE GLUCOSE (UA) NEGATIVE (NEGATIVE); URINE KETONE NEGATIVE (NEGATIVE); URINE LEUK ESTERASE NEGATIVE (NEGATIVE); URINE NITRITE NEGATIVE (NEGATIVE); URINE PROTEIN NEGATIVE (NEGATIVE); URINE UROBILINOGEN 4.0 E.U/dl mg/dL (0.2-1.0)
[2017-09-27 22:29] LABS: INR 1.33 (0.82-1.09)
[2017-09-27 22:39] LABS: ALBUMIN 3.8 g/dl (3.4-5.0); ANION GAP 10 (8-16); BILIRUBIN,TOTAL 3.8 mg/dL (0.2-1.0); BLOOD UREA NITROGEN 8 mg/dL (7-18); CALCIUM 9.3 mg/dL (8.5-10.1); CHLORIDE 104 mmol/L (98-107); CO2 22 mmol/L (21-32); CREATININE 0.7 mg/dL (0.7-1.3); GLUCOSE,RANDOM 109 mg/dL (74-106); POTASSIUM 3.9 mmol/L (3.5-5.1); SGOT/AST 73 U/L (15-37); SGPT/ALT 50 U/L (12-78); SODIUM 136 mmol/L (136-145); TOT PROT 8.3 g/dl (6.4-8.2)
[2017-09-27 22:40] LABS: ALK PHOS 142 U/L (45-117)
[2017-09-27 22:42] LABS: BASO % 1.2 % (0-2.0); EOS % 2.3 % (0-4.5); HEMATOCRIT 42.6 % (35.4-49); HEMOGLOBIN 14.6 GM/dL (11.7-16.9); LYMPH % 9.8 % (8-40); MCH 32.6 pg (25.7-33.7); MCHC 34.3 g/dl (32.0-35.9); MEAN PLT VOLUME 8.3 fl (7.5-11.1); MONO % 10.1 % (3.8-10.2); NEUT % 76.6 % (42.8-82.8); RBC 4.48 M/mm3 (4.00-5.60); RDW 13.1 % (11.9-15.9); WHITE BLOOD COUNT 4.3 K/mm3 (4.0-10.0)
[2017-09-27] MEDS ORDERED: MAGNESIUM OXIDE 400 MG TABLET (FP) PO ONE (22:42)
[2017-09-27] MEDS ORDERED: LACTULOSE 20 GM/30 ML UDC (FOR ORAL USE ONLY) ONE (23:35)
[2017-09-27] MEDS ORDERED: SULFAMETHOXAZOLE/TRIMETHOPRIM 800MG/160MG D.S. TABLET ONE (23:35)
[2017-09-27] MEDS ORDERED: LACTULOSE 20 GM/30 ML UDC (FOR ORAL USE ONLY) PO ONE (23:35)
[2017-09-27] MEDS ORDERED: MAGNESIUM OXIDE 400 MG TABLET (FP) ONE (23:35)
[2017-09-27] MEDS: LACTULOSE 20 GM/30 ML UDC (FOR ORAL USE ONLY) PO ONE ×2 (23:37→23:57)
[2017-09-28 00:20] LABS: PLATELET COUNT 86 K/MM3 (134-434)
[2017-09-28 00:21] LABS: PLATELET ESTIMATE DECREASED
== END 2017-09-27 23:45 | disposition home or self-care (01) ==
LOC: JER 20:33
DX: L03.113 Cellulitis of right upper limb (principal); J32.9 Chronic sinusitis, unspecified; E72.20 Disorder of urea cycle metabolism, unspecified; F10.20 Alcohol dependence, uncomplicated; K74.60 Unspecified cirrhosis of liver; B18.2 Chronic viral hepatitis C
CPT/HCPCS: 36415; 70450-TC; 80053; 81003; 82140; 83735; 85025; 85610; 87040; 99281-25

== ENCOUNTER 2017-09-29 13:38 | Inpatient (IN) | payer OTHER ==
[2017-09-29] MEDS ORDERED: MAG HYDROX/AL HYDROX/SIMETH 30 ML UNIT-DOSE CUP PO PRN (14:38)
[2017-09-29] MEDS ORDERED: ACETAMINOPHEN 325 MG TABLET (FP) PO PRN (14:38)
[2017-09-29] MEDS ORDERED: LOPERAMIDE HCL 2 MG CAPSULE PO PRN (14:38)
[2017-09-29] MEDS ORDERED: MENTHOL/PHENOL 1 EACH UD MM PRN (14:38)
[2017-09-29] MEDS ORDERED: P-EPHED 60MG/TRIPROLIDI 2.5MG TABLET PO PRN (14:38)
[2017-09-29] MEDS ORDERED: guaiFENesin/D-METHORPHAN HB 10 ML UNIT-DOSE CUPS PO PRN (14:38)
[2017-09-29] MEDS ORDERED: MAGNESIUM CITRATE 300 ML BOTTLE PO PRN (14:38)
[2017-09-29] MEDS ORDERED: MAGNESIUM HYDROX 2400MG/30ML ORAL SUSPENSION 30 ML CUP PO PRN (14:38)
--- NOTE | 2017-09-29 14:38 | HP ---
[facility] Rehab Assess/Revision - Admission History Admitted to Rehab from: [facility] Date of Admission to Rehab: 09/30/17 - Vital signs Vital Signs: Vital Signs Period Temp Pulse Resp BP Sys/Brar Pulse Ox Last 24 Hr 98 F 91 18 152/90 - Findings Detox History & Physical reviewed: Yes Concur with findings: Yes Comments/Additional Findings: for rehab as protocol Inpatient Rehab Admission - Initial Determination Are CD services needed?: Yes Free of communicable disease: Yes Not in need of hospitalization: Yes - Rehab Admission Criteria Previous failed treatment: No Poor recovery environment: Yes Comorbidities: Yes Lacks judgement: No Patient is meeting Inpatient Rehab admission criteria:: Yes
[2017-09-29] MEDS: hydrOXYzine PAMOATE 50 MG CAPSULE (FP) PO PRN (17:50)
[2017-09-29] MEDS: prednisoLONE ACETATE 1% OPHTH SUSP 5 ML BOTTLE OD SCH ×2 (17:52→21:21)
[2017-09-29] MEDS: OFLOXACIN 0.3% OPHTHALMIC SOLUTION 5 ML BOTTLE OD SCH ×2 (17:54→21:22)
[2017-09-29] MEDS: LACTULOSE 20 GM/30 ML UDC (FOR ORAL USE ONLY) PO SCH (21:21)
[2017-09-29] MEDS: THIAMINE HCL 100 MG TABLET (FP) PO SCH (21:21)
[2017-09-29] MEDS: SULFAMETHOXAZOLE/TRIMETHOPRIM 800MG/160MG D.S. TABLET PO SCH (21:21)
[2017-09-29] MEDS: MELATONIN 5 MG TABLETS PO PRN (22:06)
[2017-09-30] MEDS: prednisoLONE ACETATE 1% OPHTH SUSP 5 ML BOTTLE OD SCH ×7 (03:00→22:39)
[2017-09-30] MEDS: hydrOXYzine PAMOATE 50 MG CAPSULE (FP) PO PRN ×4 (06:16→21:46)
[2017-09-30] MEDS: OFLOXACIN 0.3% OPHTHALMIC SOLUTION 5 ML BOTTLE OD SCH ×5 (06:17→21:49)
--- NOTE | 2017-09-30 07:44 | HP ---
Psychiatrist Admission - Data Date of interview: 09/30/17 Admission source: 6N Identifying data: This is the first [facility] admission for this 56 years old male, father of a 22 years old son, unemployed on public assistance, homeless Medical History: Significant for heart murmur, cirrhosis, history of treatment for hepatitis C, pancreatitis and laser surgery both eyes for cataract Psychiatric History: Reports that his firts psychiatric treatment was in 2011 while admitted to inpatient rehab at [facility] for 8 months. He was diagnosed with depression and anxiety and prescribed Gabapentin. Then in 2012, he saw a psychiatrist at [facility] and was also precribed Gabapentin. Claims that he stopped taking it 2 years ago. Denies previous psychiatric hospitalization or suicidal attempt. At present, reports feeling anxious and sleeping poorly. Physical/Sexual Abuse/Trauma History: Denies history of emotional, physical or sexual abuse as well as DV relationship. No service Additional Comment: Reports history of one previous arrests(felony conviction) on charges of attempted manslaughter. Denies being on parole at present Vital Signs: Vital Signs - 24 hr 09/29/17 09/30/17 09/30/17 13:55 00:30 03:30 Temperature 98 F Pulse Rate 91 H Respiratory 18 18 20 Rate Blood Pressure 152/90 09/30/17 07:29 Temperature 97.3 F L Pulse Rate 89 Respiratory 20 Rate Blood Pressure 136/91 Allergies/Adverse Reactions: Allergies Allergy/AdvReac Type Severity Reaction Status Date / Time No Known Allergies Allergy Verified 09/27/17 21:37 Date of last physical exam: 09/25/17 Concur with the findings of this exam: Yes - Substance Abuse/Tx History Hx Alcohol Use: Yes Hx Substance Use: Yes Substance Use Type: Alcohol (Started drinking alcohol at age 25, consumes one pint of liquor daily. Last drank on 09/24/17), Heroin (Started using heroin at age 56, consumes one bag 1-3 times in the last 30 days. Last used on 09/06/17) Hx Substance Use Treatment: Yes (3 previous inpt detox & one inpt rehab @ [facility]) Mental Status Exam - Mental Status Exam Alert and Oriented to: Time, Place, Person Cognitive Function: Fair Patient Appearance: Well Groomed Mood: Anxious Affect: Appropriate Speech Pattern: Clear Voice Loudness: Normal Thought Process: Intact, Goal Oriented Hallucinations: Denies Suicidal Ideation: Denies Homicidal Ideation: Denies Insight/Judgement: Fair Sleep: Poorly Appetite: Poor Muscle strength/Tone: Normal Gait/Station: Normal Psychiatric Findings - Problem List (Adrian 1, 2,3) (1) Alcohol dependence Current Visit: Yes Status: Acute (2) Opioid abuse Current Visit: Yes Status: Acute (3) Substance-induced anxiety disorder Current Visit: Yes Status: Acute (4) Substance-induced sleep disorder Current Visit: Yes Status: Acute (5) History of pancreatitis Current Visit: No Status: Chronic (6) Cirrhosis Current Visit: No Status: Chronic (7) Hx of hepatitis C Current Visit: No Status: Suspected - Initial Treatment Plan Initial Treatment Plan: 1) Start Belsomra 10 mg po HS prn for insomnia and Vistaril 50 mg po Q 4hrs prn for anxiety(already ordered by [facility]). 2) Monitor progress
[2017-09-30] MEDS: SULFAMETHOXAZOLE/TRIMETHOPRIM 800MG/160MG D.S. TABLET PO SCH ×2 (10:14→21:46)
[2017-09-30] MEDS: PRENATAL VITAMINS W/ FOLIC ACID TABLET (FP) PO SCH (10:14)
[2017-09-30] MEDS: LACTULOSE 20 GM/30 ML UDC (FOR ORAL USE ONLY) PO SCH ×2 (10:14→21:46)
[2017-09-30] MEDS: IBUPROFEN 400 MG TABLET (FP) PO PRN (13:34)
--- NOTE | 2017-09-30 15:38 | PN ---
[facility] Progress Note Note: Patient presents c/o rash to legs and abscess left elbow. Laboratory Tests 09/30/17 07:30 Ammonia 41.29 H Vital Signs Temperature 97.3 F L 09/30/17 07:29 Pulse Rate 89 09/30/17 07:29 Respiratory Rate 20 09/30/17 07:29 Blood Pressure 136/91 09/30/17 07:29 O2 Sat by Pulse Oximetry (%) Obj: Skin: + erythmetous patches of dry skin on bilateral shins. No bleeding or discharge noted. Left elbow: +red abscess. Full ROM. Mild swelling present. Ext: no pedal edema A/P: infected abscess Eczema Will start Clotrimazole cream to rash BID Keflex 500mg every 6 hours x 7 days for infection continue to monitor clinically
[2017-09-30] MEDS: CEPHALEXIN MONOHYDRATE 500 MG CAPSULE (UD) PO SCH ×2 (16:59→23:49)
[2017-09-30] MEDS: THIAMINE HCL 100 MG TABLET (FP) PO SCH (21:45)
[2017-09-30] MEDS: SUVOREXANT 10 MG TABLET PO PRN (21:46)
[2017-09-30] MEDS ORDERED: SUVOREXANT 10 MG TABLET PO PRN (22:01)
[2017-09-30] MEDS: CLOTRIMAZOLE/BETAMET DIPROP TOPICAL CREAM 45 GM TUBE TP SCH (22:05)
[2017-10-01] MEDS: prednisoLONE ACETATE 1% OPHTH SUSP 5 ML BOTTLE OD SCH ×5 (03:00→19:00)
[2017-10-01] MEDS: hydrOXYzine PAMOATE 50 MG CAPSULE (FP) PO PRN ×4 (05:57→21:21)
[2017-10-01] MEDS: CEPHALEXIN MONOHYDRATE 500 MG CAPSULE (UD) PO SCH ×3 (05:57→17:30)
[2017-10-01] MEDS: OFLOXACIN 0.3% OPHTHALMIC SOLUTION 5 ML BOTTLE OD SCH ×5 (05:57→21:22)
[2017-10-01] MEDS: PRENATAL VITAMINS W/ FOLIC ACID TABLET (FP) PO SCH (10:20)
[2017-10-01] MEDS: LACTULOSE 20 GM/30 ML UDC (FOR ORAL USE ONLY) PO SCH ×2 (10:20→21:22)
[2017-10-01] MEDS: SULFAMETHOXAZOLE/TRIMETHOPRIM 800MG/160MG D.S. TABLET PO SCH ×2 (10:20→21:21)
[2017-10-01] MEDS: CLOTRIMAZOLE/BETAMET DIPROP TOPICAL CREAM 45 GM TUBE TP SCH ×2 (10:21→21:22)
[2017-10-01] MEDS ORDERED: PT OWN MED DRAWER 7, Y5N ONE (10:24)
[2017-10-01] MEDS: THIAMINE HCL 100 MG TABLET (FP) PO SCH (21:21)
[2017-10-01] MEDS: SUVOREXANT 10 MG TABLET PO PRN (21:21)
[2017-10-02] MEDS: CEPHALEXIN MONOHYDRATE 500 MG CAPSULE (UD) PO SCH ×5 (00:35→23:55)
[2017-10-02] MEDS: prednisoLONE ACETATE 1% OPHTH SUSP 5 ML BOTTLE OD SCH ×7 (00:35→23:55)
[2017-10-02] MEDS: OFLOXACIN 0.3% OPHTHALMIC SOLUTION 5 ML BOTTLE OD SCH ×5 (06:32→21:44)
[2017-10-02] MEDS: IBUPROFEN 400 MG TABLET (FP) PO PRN ×2 (06:34→14:42)
[2017-10-02] MEDS: hydrOXYzine PAMOATE 50 MG CAPSULE (FP) PO PRN ×4 (06:35→21:43)
[2017-10-02] MEDS: PRENATAL VITAMINS W/ FOLIC ACID TABLET (FP) PO SCH (10:22)
[2017-10-02] MEDS: SULFAMETHOXAZOLE/TRIMETHOPRIM 800MG/160MG D.S. TABLET PO SCH ×2 (10:22→21:43)
[2017-10-02] MEDS: LACTULOSE 20 GM/30 ML UDC (FOR ORAL USE ONLY) PO SCH ×2 (10:22→21:43)
[2017-10-02] MEDS: CLOTRIMAZOLE/BETAMET DIPROP TOPICAL CREAM 45 GM TUBE TP SCH ×2 (10:23→21:44)
[2017-10-02] MEDS ORDERED: PT OWN MED DRAWER 7, Y5N ONE ×2 (10:26→20:32)
[2017-10-02] MEDS: SUVOREXANT 10 MG TABLET PO PRN (21:43)
[2017-10-02] MEDS: THIAMINE HCL 100 MG TABLET (FP) PO SCH (21:43)
[2017-10-03] MEDS: prednisoLONE ACETATE 1% OPHTH SUSP 5 ML BOTTLE OD SCH ×6 (03:02→23:58)
[2017-10-03] MEDS: CEPHALEXIN MONOHYDRATE 500 MG CAPSULE (UD) PO SCH ×4 (06:56→23:58)
[2017-10-03] MEDS: hydrOXYzine PAMOATE 50 MG CAPSULE (FP) PO PRN ×4 (06:56→21:48)
[2017-10-03] MEDS: OFLOXACIN 0.3% OPHTHALMIC SOLUTION 5 ML BOTTLE OD SCH ×5 (06:56→21:49)
[2017-10-03] MEDS ORDERED: PT OWN MED DRAWER 7, Y5N ONE (09:02)
[2017-10-03] MEDS: LACTULOSE 20 GM/30 ML UDC (FOR ORAL USE ONLY) PO SCH ×2 (10:19→21:47)
[2017-10-03] MEDS: SULFAMETHOXAZOLE/TRIMETHOPRIM 800MG/160MG D.S. TABLET PO SCH ×2 (10:19→21:48)
[2017-10-03] MEDS: PRENATAL VITAMINS W/ FOLIC ACID TABLET (FP) PO SCH (10:19)
[2017-10-03] MEDS: CLOTRIMAZOLE/BETAMET DIPROP TOPICAL CREAM 45 GM TUBE TP SCH ×2 (10:20→21:49)
[2017-10-03] MEDS: IBUPROFEN 400 MG TABLET (FP) PO PRN (17:06)
--- NOTE | 2017-10-03 17:46 | PN ---
S Progress Note Note: Psychiatry Attending's note : Called for renewal of orders. Belsomra 10 mg po hs prn. Chart reviewed. Drug is well tolerated. Renewed for 3 days.
[2017-10-03] MEDS: BACITRACIN 0.9 GM PACKET TP SCH (21:47)
[2017-10-03] MEDS: THIAMINE HCL 100 MG TABLET (FP) PO SCH (21:47)
[2017-10-03] MEDS: SUVOREXANT 10 MG TABLET PO PRN (21:48)
[2017-10-04] MEDS: prednisoLONE ACETATE 1% OPHTH SUSP 5 ML BOTTLE OD SCH ×6 (03:30→22:20)
[2017-10-04] MEDS: CEPHALEXIN MONOHYDRATE 500 MG CAPSULE (UD) PO SCH ×3 (06:23→18:15)
[2017-10-04] MEDS: IBUPROFEN 400 MG TABLET (FP) PO PRN ×3 (06:24→21:17)
[2017-10-04] MEDS: hydrOXYzine PAMOATE 50 MG CAPSULE (FP) PO PRN ×4 (06:24→21:14)
[2017-10-04] MEDS: OFLOXACIN 0.3% OPHTHALMIC SOLUTION 5 ML BOTTLE OD SCH ×5 (06:30→22:20)
[2017-10-04] MEDS: PRENATAL VITAMINS W/ FOLIC ACID TABLET (FP) PO SCH (09:49)
[2017-10-04] MEDS: BACITRACIN 0.9 GM PACKET TP SCH ×2 (09:49→22:18)
[2017-10-04] MEDS: LACTULOSE 20 GM/30 ML UDC (FOR ORAL USE ONLY) PO SCH ×2 (09:51→21:14)
[2017-10-04] MEDS: SULFAMETHOXAZOLE/TRIMETHOPRIM 800MG/160MG D.S. TABLET PO SCH ×2 (09:51→21:14)
[2017-10-04] MEDS: CLOTRIMAZOLE/BETAMET DIPROP TOPICAL CREAM 45 GM TUBE TP SCH ×2 (09:52→22:19)
[2017-10-04] MEDS: THIAMINE HCL 100 MG TABLET (FP) PO SCH (21:14)
[2017-10-04] MEDS: MELATONIN 5 MG TABLETS PO PRN (21:14)
[2017-10-04] MEDS: SUVOREXANT 10 MG TABLET PO PRN (21:15)
[2017-10-05] MEDS: prednisoLONE ACETATE 1% OPHTH SUSP 5 ML BOTTLE OD SCH ×6 (03:00→23:00)
[2017-10-05] MEDS: CEPHALEXIN MONOHYDRATE 500 MG CAPSULE (UD) PO SCH ×4 (06:13→17:39)
[2017-10-05] MEDS: hydrOXYzine PAMOATE 50 MG CAPSULE (FP) PO PRN ×3 (06:13→14:17)
[2017-10-05] MEDS: IBUPROFEN 400 MG TABLET (FP) PO PRN (06:13)
[2017-10-05] MEDS: OFLOXACIN 0.3% OPHTHALMIC SOLUTION 5 ML BOTTLE OD SCH ×5 (06:14→21:57)
[2017-10-05] MEDS: PRENATAL VITAMINS W/ FOLIC ACID TABLET (FP) PO SCH (09:45)
[2017-10-05] MEDS: BACITRACIN 0.9 GM PACKET TP SCH ×2 (09:45→21:56)
[2017-10-05] MEDS: LACTULOSE 20 GM/30 ML UDC (FOR ORAL USE ONLY) PO SCH ×2 (09:45→21:56)
[2017-10-05] MEDS: SULFAMETHOXAZOLE/TRIMETHOPRIM 800MG/160MG D.S. TABLET PO SCH ×2 (09:45→21:56)
[2017-10-05] MEDS: CLOTRIMAZOLE/BETAMET DIPROP TOPICAL CREAM 45 GM TUBE TP SCH ×2 (09:47→21:57)
[2017-10-05] MEDS: SUVOREXANT 10 MG TABLET PO PRN (21:56)
[2017-10-05] MEDS: THIAMINE HCL 100 MG TABLET (FP) PO SCH (21:58)
[2017-10-06] MEDS: CEPHALEXIN MONOHYDRATE 500 MG CAPSULE (UD) PO SCH ×5 (00:14→23:49)
[2017-10-06] MEDS: prednisoLONE ACETATE 1% OPHTH SUSP 5 ML BOTTLE OD SCH ×6 (03:00→23:49)
[2017-10-06] MEDS: OFLOXACIN 0.3% OPHTHALMIC SOLUTION 5 ML BOTTLE OD SCH ×5 (06:05→22:06)
[2017-10-06] MEDS: hydrOXYzine PAMOATE 50 MG CAPSULE (FP) PO PRN ×4 (06:07→21:54)
[2017-10-06] MEDS: IBUPROFEN 400 MG TABLET (FP) PO PRN ×2 (06:07→14:50)
[2017-10-06] MEDS: LACTULOSE 20 GM/30 ML UDC (FOR ORAL USE ONLY) PO SCH ×2 (10:23→21:53)
[2017-10-06] MEDS: SULFAMETHOXAZOLE/TRIMETHOPRIM 800MG/160MG D.S. TABLET PO SCH ×2 (10:24→22:06)
[2017-10-06] MEDS: PRENATAL VITAMINS W/ FOLIC ACID TABLET (FP) PO SCH (10:24)
[2017-10-06] MEDS: BACITRACIN 0.9 GM PACKET TP SCH ×2 (10:24→21:58)
[2017-10-06] MEDS: CLOTRIMAZOLE/BETAMET DIPROP TOPICAL CREAM 45 GM TUBE TP SCH ×2 (10:26→22:06)
--- NOTE | 2017-10-06 10:58 | PN ---
[facility] Progress Note Note: Renewal of orders. Belsomra 10 mg po hs prn. Chart reviewed. Drug is well tolerated. Renewed for 3 days.
[2017-10-06] MEDS ORDERED: PT OWN MED DRAWER 7, Y5N ONE (13:25)
--- NOTE | 2017-10-06 16:35 | PN ---
[facility] Progress Note Note: Vital Signs Temperature 98 F 10/06/17 07:02 Pulse Rate 80 10/06/17 07:02 Respiratory Rate 18 10/06/17 07:02 Blood Pressure 132/66 10/06/17 07:02 O2 Sat by Pulse Oximetry (%) Laboratory Last Values Ammonia 41.29 umol/L (11-32) H 09/30/17 07:30 Patient c/o of headache. Denies visual changes or paresthesia. Labs showed elevated LFTs and AST. Patient currently on Lactulose for elevated ammonia levels. A/P patient AOx3 in no apparent distress lungs clear throughout + murmur, no JVD , no edema BS x 4, non tender, non distended full ROM, ambulating in the unit Plan: increase iburpofen 600mg PRN for headache tylenol d/c d/t elevated LFTs and AST repeat CBC, CMP and ammonia
[2017-10-06] MEDS: THIAMINE HCL 100 MG TABLET (FP) PO SCH (21:53)
[2017-10-06] MEDS: IBUPROFEN 600 MG TABLET (FP) PO PRN (21:53)
[2017-10-06] MEDS: SUVOREXANT 10 MG TABLET PO PRN (21:54)
[2017-10-06] MEDS: MELATONIN 5 MG TABLETS PO PRN (21:54)
[2017-10-07] MEDS: prednisoLONE ACETATE 1% OPHTH SUSP 5 ML BOTTLE OD SCH ×6 (03:00→22:02)
[2017-10-07] MEDS: OFLOXACIN 0.3% OPHTHALMIC SOLUTION 5 ML BOTTLE OD SCH ×5 (06:12→22:02)
[2017-10-07] MEDS: IBUPROFEN 600 MG TABLET (FP) PO PRN ×2 (06:13→16:02)
[2017-10-07] MEDS: CEPHALEXIN MONOHYDRATE 500 MG CAPSULE (UD) PO SCH ×2 (06:13→12:06)
[2017-10-07] MEDS: hydrOXYzine PAMOATE 50 MG CAPSULE (FP) PO PRN ×4 (06:13→22:03)
[2017-10-07] MEDS ORDERED: PT OWN MED DRAWER 7, Y5N ONE (08:55)
[2017-10-07] MEDS: PRENATAL VITAMINS W/ FOLIC ACID TABLET (FP) PO SCH (10:15)
[2017-10-07] MEDS: SULFAMETHOXAZOLE/TRIMETHOPRIM 800MG/160MG D.S. TABLET PO SCH ×2 (10:15→22:01)
[2017-10-07] MEDS: LACTULOSE 20 GM/30 ML UDC (FOR ORAL USE ONLY) PO SCH ×2 (10:15→22:03)
[2017-10-07] MEDS: CLOTRIMAZOLE/BETAMET DIPROP TOPICAL CREAM 45 GM TUBE TP SCH (10:16)
[2017-10-07] MEDS: BACITRACIN 0.9 GM PACKET TP SCH ×2 (10:16→22:02)
[2017-10-07] MEDS: THIAMINE HCL 100 MG TABLET (FP) PO SCH (22:02)
[2017-10-08] MEDS: CLOTRIMAZOLE/BETAMET DIPROP TOPICAL CREAM 45 GM TUBE TP SCH ×3 (00:38→22:35)
[2017-10-08] MEDS: prednisoLONE ACETATE 1% OPHTH SUSP 5 ML BOTTLE OD SCH ×6 (03:23→23:10)
[2017-10-08] MEDS: IBUPROFEN 600 MG TABLET (FP) PO PRN ×3 (06:09→21:55)
[2017-10-08] MEDS: hydrOXYzine PAMOATE 50 MG CAPSULE (FP) PO PRN ×3 (06:09→18:03)
[2017-10-08] MEDS: OFLOXACIN 0.3% OPHTHALMIC SOLUTION 5 ML BOTTLE OD SCH ×5 (06:26→21:53)
[2017-10-08] MEDS: PRENATAL VITAMINS W/ FOLIC ACID TABLET (FP) PO SCH (10:39)
[2017-10-08] MEDS: BACITRACIN 0.9 GM PACKET TP SCH ×2 (10:39→21:52)
[2017-10-08] MEDS: SULFAMETHOXAZOLE/TRIMETHOPRIM 800MG/160MG D.S. TABLET PO SCH ×2 (10:39→21:52)
[2017-10-08] MEDS: LACTULOSE 20 GM/30 ML UDC (FOR ORAL USE ONLY) PO SCH ×2 (10:40→21:53)
--- NOTE | 2017-10-08 16:24 | PN ---
S Progress Note Note: Psychiatry Attending's noted : Chart reviewed. Benign hospital course. Belsomra is well tolerated. Renewed : belsomra 10 mg po hs prn.
[2017-10-08] MEDS: THIAMINE HCL 100 MG TABLET (FP) PO SCH (21:52)
[2017-10-09] MEDS: prednisoLONE ACETATE 1% OPHTH SUSP 5 ML BOTTLE OD SCH ×6 (03:40→22:30)
[2017-10-09] MEDS: hydrOXYzine PAMOATE 50 MG CAPSULE (FP) PO PRN ×3 (06:18→21:53)
[2017-10-09] MEDS: IBUPROFEN 600 MG TABLET (FP) PO PRN ×3 (06:18→21:53)
[2017-10-09] MEDS: OFLOXACIN 0.3% OPHTHALMIC SOLUTION 5 ML BOTTLE OD SCH ×5 (06:19→21:57)
--- NOTE | 2017-10-09 10:00 | PN ---
S Progress Note Note: Patient c/o of headache. Denies changes in LOC, vision changes, paresthesia or vertigo. Vital Signs Temperature 97.9 F 10/09/17 07:07 Pulse Rate 80 10/09/17 07:07 Respiratory Rate 18 10/09/17 07:07 Blood Pressure 130/75 10/09/17 07:07 O2 Sat by Pulse Oximetry (%) A/P AOx3 in no apparent distress no neuro deficits full ROM skin intact, no edema - headache Plan: increase fluids labs pending continue ibuprofen PRN continue to monitor for worsening symptoms
[2017-10-09] MEDS: BACITRACIN 0.9 GM PACKET TP SCH ×2 (10:24→21:54)
[2017-10-09] MEDS: PRENATAL VITAMINS W/ FOLIC ACID TABLET (FP) PO SCH (10:24)
[2017-10-09] MEDS: SULFAMETHOXAZOLE/TRIMETHOPRIM 800MG/160MG D.S. TABLET PO SCH ×2 (10:25→21:51)
[2017-10-09] MEDS: LACTULOSE 20 GM/30 ML UDC (FOR ORAL USE ONLY) PO SCH ×2 (10:26→21:56)
[2017-10-09] MEDS: CLOTRIMAZOLE/BETAMET DIPROP TOPICAL CREAM 45 GM TUBE TP SCH ×2 (10:56→21:56)
[2017-10-09] MEDS: THIAMINE HCL 100 MG TABLET (FP) PO SCH (21:51)
[2017-10-09] MEDS: SUVOREXANT 10 MG TABLET PO PRN (21:52)
[2017-10-10] MEDS: prednisoLONE ACETATE 1% OPHTH SUSP 5 ML BOTTLE OD SCH ×5 (03:40→19:00)
[2017-10-10] MEDS: IBUPROFEN 600 MG TABLET (FP) PO PRN ×2 (05:51→21:50)
[2017-10-10] MEDS: OFLOXACIN 0.3% OPHTHALMIC SOLUTION 5 ML BOTTLE OD SCH ×5 (07:34→21:52)
[2017-10-10] MEDS: hydrOXYzine PAMOATE 50 MG CAPSULE (FP) PO PRN ×2 (08:05→21:51)
[2017-10-10] MEDS: SULFAMETHOXAZOLE/TRIMETHOPRIM 800MG/160MG D.S. TABLET PO SCH ×2 (10:16→21:51)
[2017-10-10] MEDS: LACTULOSE 20 GM/30 ML UDC (FOR ORAL USE ONLY) PO SCH ×2 (10:16→21:51)
[2017-10-10] MEDS: PRENATAL VITAMINS W/ FOLIC ACID TABLET (FP) PO SCH (10:16)
[2017-10-10] MEDS: BACITRACIN 0.9 GM PACKET TP SCH ×2 (10:16→21:51)
[2017-10-10 10:33] LABS: BASO % 3.1 % (0-2.0); EOS % 2.5 % (0-4.5); HEMATOCRIT 37.3 % (35.4-49); HEMOGLOBIN 12.9 GM/dL (11.7-16.9); LYMPH % 8.7 % (8-40); MCH 33.1 pg (25.7-33.7); MCHC 34.6 g/dl (32.0-35.9); MEAN CELL VOLUME 95.7 fl (80-96); MEAN PLT VOLUME 8.3 fl (7.5-11.1); MONO % 12.8 % (3.8-10.2); NEUT % 72.9 % (42.8-82.8); PLATELET COUNT 118 K/MM3 (134-434); RDW 12.9 % (11.9-15.9); WHITE BLOOD COUNT 4.6 K/mm3 (4.0-10.0)
[2017-10-10 10:47] LABS: CHLORIDE 107 mmol/L (98-107); POTASSIUM 5.9 mmol/L (3.5-5.1); SODIUM 138 mmol/L (136-145)
[2017-10-10] MEDS: CLOTRIMAZOLE/BETAMET DIPROP TOPICAL CREAM 45 GM TUBE TP SCH ×2 (10:53→21:53)
[2017-10-10 11:13] LABS: ALBUMIN 3.1 g/dl (3.4-5.0); ALK PHOS 123 U/L (45-117); ANION GAP 7 (8-16); BILIRUBIN,TOTAL 0.6 mg/dL (0.2-1.0); BLOOD UREA NITROGEN 12 mg/dL (7-18); CALCIUM 8.3 mg/dL (8.5-10.1); CO2 24 mmol/L (21-32); CREATININE 0.9 mg/dL (0.7-1.3); GLUCOSE,RANDOM 229 mg/dL (74-106); SGOT/AST 22 U/L (15-37); SGPT/ALT 33 U/L (12-78); TOT PROT 6.6 g/dl (6.4-8.2)
[2017-10-10] MEDS: THIAMINE HCL 100 MG TABLET (FP) PO SCH (21:50)
[2017-10-10] MEDS: SUVOREXANT 10 MG TABLET PO PRN (21:51)
[2017-10-11] MEDS: prednisoLONE ACETATE 1% OPHTH SUSP 5 ML BOTTLE OD SCH ×7 (00:05→23:11)
[2017-10-11] MEDS: OFLOXACIN 0.3% OPHTHALMIC SOLUTION 5 ML BOTTLE OD SCH ×5 (06:26→21:47)
[2017-10-11] MEDS: IBUPROFEN 600 MG TABLET (FP) PO PRN ×2 (06:27→21:50)
[2017-10-11] MEDS: hydrOXYzine PAMOATE 50 MG CAPSULE (FP) PO PRN ×3 (06:27→21:50)
[2017-10-11] MEDS: PRENATAL VITAMINS W/ FOLIC ACID TABLET (FP) PO SCH (10:16)
[2017-10-11] MEDS: SULFAMETHOXAZOLE/TRIMETHOPRIM 800MG/160MG D.S. TABLET PO SCH ×2 (10:16→21:45)
[2017-10-11] MEDS: LACTULOSE 20 GM/30 ML UDC (FOR ORAL USE ONLY) PO SCH ×2 (10:16→21:45)
[2017-10-11] MEDS: BACITRACIN 0.9 GM PACKET TP SCH ×2 (10:16→21:45)
[2017-10-11] MEDS: CLOTRIMAZOLE/BETAMET DIPROP TOPICAL CREAM 45 GM TUBE TP SCH ×2 (10:17→21:52)
--- NOTE | 2017-10-11 15:55 | PN ---
[facility] Progress Note Note: Vital Signs Temperature 97.3 F L 10/11/17 07:02 Pulse Rate 70 10/11/17 07:02 Respiratory Rate 18 10/11/17 07:02 Blood Pressure 134/77 10/11/17 07:02 O2 Sat by Pulse Oximetry (%) Laboratory Last Values WBC 4.6 K/mm3 (4.0-10.0) 10/10/17 08:30 RBC 3.90 M/mm3 (4.00-5.60) L 10/10/17 08:30 Hgb 12.9 GM/dL (11.7-16.9) D 10/10/17 08:30 Hct 37.3 % (35.4-49) 10/10/17 08:30 MCV 95.7 fl (80-96) 10/10/17 08:30 MCH 33.1 pg (25.7-33.7) 10/10/17 08:30 MCHC 34.6 g/dl (32.0-35.9) 10/10/17 08:30 RDW 12.9 % (11.9-15.9) 10/10/17 08:30 Plt Count 118 K/MM3 (134-434) L D 10/10/17 08:30 MPV 8.3 fl (7.5-11.1) 10/10/17 08:30 Absolute Neuts (auto) 3.4 # 10/10/17 08:30 Neutrophils % 72.9 % (42.8-82.8) 10/10/17 08:30 Lymphocytes % 8.7 % (8-40) 10/10/17 08:30 Monocytes % 12.8 % (3.8-10.2) H 10/10/17 08:30 Eosinophils % 2.5 % (0-4.5) 10/10/17 08:30 Basophils % 3.1 % (0-2.0) H 10/10/17 08:30 Nucleated RBC % 0 % (0-0) 10/10/17 08:30 Sodium 138 mmol/L (136-145) 10/10/17 08:30 Potassium 5.9 mmol/L (3.5-5.1) H D 10/10/17 08:30 Chloride 107 mmol/L (98-107) 10/10/17 08:30 Carbon Dioxide 24 mmol/L (21-32) 10/10/17 08:30 Anion Gap 7 (8-16) L 10/10/17 08:30 BUN 12 mg/dL (7-18) D 10/10/17 08:30 Creatinine 0.9 mg/dL (0.7-1.3) D 10/10/17 08:30 Creat Clearance w eGFR > 60 (>60) 10/10/17 08:30 Random Glucose 229 mg/dL (74-106) H D 10/10/17 08:30 Calcium 8.3 mg/dL (8.5-10.1) L 10/10/17 08:30 Total Bilirubin 0.6 mg/dL (0.2-1.0) D 10/10/17 08:30 AST 22 U/L (15-37) D 10/10/17 08:30 ALT 33 U/L (12-78) D 10/10/17 08:30 Alkaline Phosphatase 123 U/L (45-117) H 10/10/17 08:30 Ammonia 57.5 umol/L (11-32) H 10/10/17 08:30 Total Protein 6.6 g/dl (6.4-8.2) D 10/10/17 08:30 Albumin 3.1 g/dl (3.4-5.0) L 10/10/17 08:30 Labs reviewed: 1. hyperkelemia : kyaexalate orders, repeat potassium levels 2. elevated ammonia levels: continue lactulose, repeat Ammonia levels in the AM 3. Elevated random glucose: hemoglobin A1C ordered, BGM ACBK continue to monitor
[2017-10-11] MEDS ORDERED: SODIUM POLYSTYRENE SULFONATE 15 GM/60 ML BOTTLE PO ONE (16:30)
[2017-10-11] MEDS: SUVOREXANT 10 MG TABLET PO PRN (21:45)
[2017-10-11] MEDS: THIAMINE HCL 100 MG TABLET (FP) PO SCH (21:45)
[2017-10-11] MEDS ORDERED: SUVOREXANT 10 MG TABLET PO PRN (22:00)
[2017-10-12] MEDS: prednisoLONE ACETATE 1% OPHTH SUSP 5 ML BOTTLE OD SCH ×6 (03:00→23:29)
[2017-10-12] MEDS: OFLOXACIN 0.3% OPHTHALMIC SOLUTION 5 ML BOTTLE OD SCH ×5 (06:00→21:55)
[2017-10-12] MEDS: IBUPROFEN 600 MG TABLET (FP) PO PRN ×2 (06:13→21:53)
[2017-10-12] MEDS: hydrOXYzine PAMOATE 50 MG CAPSULE (FP) PO PRN ×3 (06:14→21:53)
[2017-10-12] MEDS: SULFAMETHOXAZOLE/TRIMETHOPRIM 800MG/160MG D.S. TABLET PO SCH ×2 (10:30→21:54)
[2017-10-12] MEDS: BACITRACIN 0.9 GM PACKET TP SCH ×2 (10:30→21:53)
[2017-10-12] MEDS: PRENATAL VITAMINS W/ FOLIC ACID TABLET (FP) PO SCH (10:30)
[2017-10-12] MEDS: LACTULOSE 20 GM/30 ML UDC (FOR ORAL USE ONLY) PO SCH ×2 (10:30→21:53)
[2017-10-12] MEDS: CLOTRIMAZOLE/BETAMET DIPROP TOPICAL CREAM 45 GM TUBE TP SCH ×2 (10:32→21:54)
--- NOTE | 2017-10-12 15:24 | PN ---
[facility] Progress Note Note: Ammonia level decreasing to 36. Will continue lactulose and repeat level in 48 hours. Continue to monitor clinically.
[2017-10-12] MEDS: THIAMINE HCL 100 MG TABLET (FP) PO SCH (21:55)
[2017-10-13] MEDS: prednisoLONE ACETATE 1% OPHTH SUSP 5 ML BOTTLE OD SCH ×6 (03:32→22:05)
[2017-10-13] MEDS: IBUPROFEN 600 MG TABLET (FP) PO PRN ×2 (06:26→14:30)
[2017-10-13] MEDS: hydrOXYzine PAMOATE 50 MG CAPSULE (FP) PO PRN ×4 (06:27→21:39)
[2017-10-13] MEDS: OFLOXACIN 0.3% OPHTHALMIC SOLUTION 5 ML BOTTLE OD SCH ×5 (06:29→22:04)
[2017-10-13] MEDS ORDERED: PT OWN MED DRAWER 7, Y5N ONE (09:13)
[2017-10-13] MEDS: BACITRACIN 0.9 GM PACKET TP SCH ×2 (10:21→21:37)
[2017-10-13] MEDS: LACTULOSE 20 GM/30 ML UDC (FOR ORAL USE ONLY) PO SCH ×2 (10:21→21:37)
[2017-10-13] MEDS: SULFAMETHOXAZOLE/TRIMETHOPRIM 800MG/160MG D.S. TABLET PO SCH (10:21)
[2017-10-13] MEDS: CLOTRIMAZOLE/BETAMET DIPROP TOPICAL CREAM 45 GM TUBE TP SCH ×2 (10:22→21:38)
[2017-10-13] MEDS: PRENATAL VITAMINS W/ FOLIC ACID TABLET (FP) PO SCH (10:23)
--- NOTE | 2017-10-13 14:43 | PN ---
Psychiatric Progress Note Vital Signs: Vital Signs Period Temp Pulse Resp BP Sys/Brar Pulse Ox Last 24 Hr 97.4 F 69 18-18 140/89 Date of Session: 10/13/17 Chief Complaint:: Anxiety and Insomnia HPI: Patient addressing Alcohol Dependence comorbid with Opioid Abuse comorbid with Substance-Induced Anxiety Disorder and Substance-Induced Sleep Disorder ROS: 1) Increase Belsomra to 15 mg po HS prn for insomnia. 2) Start Gabapentin 300 mg po TID Current Medications: Active Medications Generic Name Dose Route Start Last Admin Trade Name Freq PRN Reason Stop Dose Admin Al Hydroxide/Mg Hydroxide 30 ml 09/29/17 14:38 10/04/17 06:24 Mylanta Oral Suspension - PO 30 ml Q6H PRN Administration DYSPEPSIA Bacitracin 0.9 gm 10/03/17 22:00 10/13/17 10:21 Bacitracin - TP 0.9 gm BID ALMA Administration Clotrimazole 1 applic 09/30/17 22:00 10/13/17 10:22 Lotrisone Cream (Large Tube) - TP 1 applic BID ALMA Administration Eucalyptus/Menthol/Phenol/Sorbitol 1 each 09/29/17 14:38 Cepastat Lozenge - MM Q4H PRN SORE THROAT Gabapentin 300 mg 10/13/17 14:45 Neurontin - PO TID ALMA Guaifenesin 10 ml 09/29/17 14:38 Robitussin Dm - PO Q6H PRN COUGH Hydroxyzine Pamoate 50 mg 09/29/17 14:38 10/13/17 14:30 Vistaril - PO 50 mg Q4H PRN Administration AGITATION Ibuprofen 600 mg 10/06/17 16:35 10/13/17 14:30 Motrin - PO 600 mg Q6H PRN Administration PAIN LEVEL 6-10 Lactulose 20 gm 09/29/17 22:00 10/13/17 10:21 Cephulac (Oral Use) PO 20 gm BID ALMA Administration Loperamide HCl 4 mg 09/29/17 14:38 Imodium - PO Q6H PRN DIARRHEA Magnesium Citrate 300 ml 09/29/17 14:38 Citroma - PO Q48H PRN CONSTIPATION Magnesium Hydroxide 30 ml 09/29/17 14:38 Milk Of Magnesia - PO DAILY PRN CONSTIPATION Ofloxacin 1 drop 09/29/17 18:00 10/13/17 14:29 Ocuflox 0.3% Eye Drops - OD 1 drop Q4HWA ALMA Administration Prednisolone Acetate 2 drop 09/29/17 15:00 10/13/17 14:29 Pred Forte 1% - OD 2 drop Q4H ALMA Administration Multivit/Folic Acid/Iron 1 tab 09/30/17 10:00 10/13/17 10:23 Vitamins (Sjr) - PO 1 tab DAILY ALMA Administration Pseudoephedrine/Triprolidine 1 combo 09/29/17 14:38 Actifed - PO TID PRN NASAL CONGESTION Suvorexant 10 mg 10/11/17 22:00 10/12/17 21:53 Belsomra PO 10 mg HS PRN Administration INSOMNIA Suvorexant 15 mg 10/13/17 22:00 Belsomra PO HS PRN INSOMNIA Thiamine HCl 100 mg 09/29/17 22:00 10/12/17 21:55 Vitamin B1 - PO 100 mg HS ALMA Administration Trimethoprim/Sulfamethoxazole 1 each 09/29/17 22:00 10/13/17 10:21 Bactrim Ds - PO 1 each BID ALMA Administration Current Side Effect: No Lab tests ordered: Yes Lab tests reviewed: Yes Provider note:: Patient complains of experieriencing difficulty to sleep and anxiety despite taking Belsomra 10 mg at bedtime and Vistaril 50 mg po Q 4hrs prn. 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 Discussed with patient about increasing Belsomra to 15 mg and adding Gabapentin Total face to face time:: 5 Mental Status Exam - Mental Status Exam Alert and Oriented to: Time, Place, Person Cognitive Function: Fair Patient Appearance: Well Groomed Mood: Anxious Affect: Appropriate Patient Behavior: Cooperative Speech Pattern: Clear Voice Loudness: Normal Thought Process: Intact, Goal Oriented Thought Disorder: Not Present Hallucinations: Denies Homicidal Ideation: Denies Insight/Judgement: Fair Sleep: Poorly Appetite: Good Muscle strength/Tone: Normal Gait/Station: Normal Psychiatric Treatment Plan - Problem List (1) Alcohol dependence Current Visit: Yes (2) Opioid abuse Current Visit: Yes (3) Substance-induced anxiety disorder Current Visit: Yes (4) Substance-induced sleep disorder Current Visit: Yes (5) History of pancreatitis Current Visit: No (6) Cirrhosis Current Visit: No (7) Hx of hepatitis C Current Visit: No Initial treatment plan: 1) Discontinue Belsomra as currently ordered. 2) Start Belsomra 15 mg po HS prn for insomnia and Gabapentin 300 mg po TID. 3) Monitor progress
[2017-10-13] MEDS: GABAPENTIN 300 MG CAPSULE (FP) PO SCH ×2 (15:13→21:37)
[2017-10-13] MEDS: THIAMINE HCL 100 MG TABLET (FP) PO SCH (21:37)
[2017-10-13] MEDS: SUVOREXANT 15 MG TABLET PO PRN (21:40)
[2017-10-14] MEDS: prednisoLONE ACETATE 1% OPHTH SUSP 5 ML BOTTLE OD SCH ×6 (03:24→23:17)
[2017-10-14] MEDS: hydrOXYzine PAMOATE 50 MG CAPSULE (FP) PO PRN ×3 (06:29→21:43)
[2017-10-14] MEDS: IBUPROFEN 600 MG TABLET (FP) PO PRN ×2 (06:29→13:14)
[2017-10-14] MEDS: GABAPENTIN 300 MG CAPSULE (FP) PO SCH ×3 (06:29→21:43)
[2017-10-14] MEDS: OFLOXACIN 0.3% OPHTHALMIC SOLUTION 5 ML BOTTLE OD SCH ×5 (06:32→21:43)
[2017-10-14] MEDS: CLOTRIMAZOLE/BETAMET DIPROP TOPICAL CREAM 45 GM TUBE TP SCH ×2 (10:16→21:45)
[2017-10-14] MEDS: BACITRACIN 0.9 GM PACKET TP SCH ×2 (10:16→21:42)
[2017-10-14] MEDS: PRENATAL VITAMINS W/ FOLIC ACID TABLET (FP) PO SCH (10:16)
[2017-10-14] MEDS: LACTULOSE 20 GM/30 ML UDC (FOR ORAL USE ONLY) PO SCH ×2 (10:16→21:42)
--- NOTE | 2017-10-14 15:30 | PN ---
[facility] Progress Note Note: Patient presents for review of ammonia levels. Denies CP, SOB and Dizziness. Vital Signs Temperature 97.6 F 10/14/17 08:03 Pulse Rate 71 10/14/17 08:03 Respiratory Rate 18 10/14/17 08:03 Blood Pressure 136/84 10/14/17 08:03 O2 Sat by Pulse Oximetry (%) Laboratory Tests 09/30/17 10/10/17 10/10/17 07:30 08:30 08:30 WBC 4.6 RBC 3.90 L Hgb 12.9 D Hct 37.3 MCV 95.7 MCH 33.1 MCHC 34.6 RDW 12.9 Plt Count 118 L D MPV 8.3 Absolute Neuts (auto) 3.4 Neutrophils % 72.9 Lymphocytes % 8.7 Monocytes % 12.8 H Eosinophils % 2.5 Basophils % 3.1 H Nucleated RBC % 0 Sodium 138 Potassium 5.9 H D Chloride 107 Carbon Dioxide 24 Anion Gap 7 L BUN 12 D Creatinine 0.9 D Creat Clearance w eGFR > 60 Random Glucose 229 H D Hemoglobin A1c % Calcium 8.3 L Total Bilirubin 0.6 D AST 22 D ALT 33 D Alkaline Phosphatase 123 H Ammonia 41.29 H Total Protein 6.6 D Albumin 3.1 L 10/10/17 10/12/17 10/12/17 08:30 08:30 08:30 WBC RBC Hgb Hct MCV MCH MCHC RDW Plt Count MPV Absolute Neuts (auto) Neutrophils % Lymphocytes % Monocytes % Eosinophils % Basophils % Nucleated RBC % Sodium Potassium 5.0 Chloride Carbon Dioxide Anion Gap BUN Creatinine Creat Clearance w eGFR Random Glucose Hemoglobin A1c % 6.3 H Calcium Total Bilirubin AST ALT Alkaline Phosphatase Ammonia 57.5 H Total Protein Albumin 10/12/17 10/14/17 09:15 07:30 WBC RBC Hgb Hct MCV MCH MCHC RDW Plt Count MPV Absolute Neuts (auto) Neutrophils % Lymphocytes % Monocytes % Eosinophils % Basophils % Nucleated RBC % Sodium Potassium Chloride Carbon Dioxide Anion Gap BUN Creatinine Creat Clearance w eGFR Random Glucose Hemoglobin A1c % Calcium Total Bilirubin AST ALT Alkaline Phosphatase Ammonia 38.16 H 93.7 H Total Protein Albumin Obj: General: patient alert and oriented x 3. In no acute distress. Skin warm and dry Ext: + fine tremors, no edema. Full ROM A/P: elevated Ammonia level will increase lactulose to 20gm tid repeat level in 48 hours cont to monitor
[2017-10-14] MEDS: THIAMINE HCL 100 MG TABLET (FP) PO SCH (21:42)
[2017-10-14] MEDS: SUVOREXANT 15 MG TABLET PO PRN (21:42)
[2017-10-15] MEDS: prednisoLONE ACETATE 1% OPHTH SUSP 5 ML BOTTLE OD SCH ×6 (03:00→23:51)
[2017-10-15] MEDS: IBUPROFEN 600 MG TABLET (FP) PO PRN ×3 (06:13→21:19)
[2017-10-15] MEDS: hydrOXYzine PAMOATE 50 MG CAPSULE (FP) PO PRN ×4 (06:13→21:20)
[2017-10-15] MEDS: GABAPENTIN 300 MG CAPSULE (FP) PO SCH ×3 (06:13→21:20)
[2017-10-15] MEDS: LACTULOSE 20 GM/30 ML UDC (FOR ORAL USE ONLY) PO SCH ×3 (06:13→21:19)
[2017-10-15] MEDS: OFLOXACIN 0.3% OPHTHALMIC SOLUTION 5 ML BOTTLE OD SCH ×5 (06:35→21:21)
[2017-10-15] MEDS: PRENATAL VITAMINS W/ FOLIC ACID TABLET (FP) PO SCH (10:19)
[2017-10-15] MEDS: BACITRACIN 0.9 GM PACKET TP SCH ×2 (10:19→21:18)
[2017-10-15] MEDS: CLOTRIMAZOLE/BETAMET DIPROP TOPICAL CREAM 45 GM TUBE TP SCH ×2 (10:20→21:20)
[2017-10-15] MEDS: THIAMINE HCL 100 MG TABLET (FP) PO SCH (21:18)
[2017-10-15] MEDS: SUVOREXANT 15 MG TABLET PO PRN (21:20)
[2017-10-16] MEDS: prednisoLONE ACETATE 1% OPHTH SUSP 5 ML BOTTLE OD SCH ×6 (03:00→23:03)
[2017-10-16] MEDS: IBUPROFEN 600 MG TABLET (FP) PO PRN ×3 (06:32→21:44)
[2017-10-16] MEDS: hydrOXYzine PAMOATE 50 MG CAPSULE (FP) PO PRN ×3 (06:32→14:37)
[2017-10-16] MEDS: GABAPENTIN 300 MG CAPSULE (FP) PO SCH ×3 (06:32→21:47)
[2017-10-16] MEDS: LACTULOSE 20 GM/30 ML UDC (FOR ORAL USE ONLY) PO SCH ×3 (06:32→23:02)
[2017-10-16] MEDS: OFLOXACIN 0.3% OPHTHALMIC SOLUTION 5 ML BOTTLE OD SCH ×5 (06:35→21:45)
[2017-10-16] MEDS: BACITRACIN 0.9 GM PACKET TP SCH ×2 (10:20→21:45)
[2017-10-16] MEDS: PRENATAL VITAMINS W/ FOLIC ACID TABLET (FP) PO SCH (10:20)
[2017-10-16] MEDS: CLOTRIMAZOLE/BETAMET DIPROP TOPICAL CREAM 45 GM TUBE TP SCH ×2 (10:23→23:03)
[2017-10-16] MEDS: THIAMINE HCL 100 MG TABLET (FP) PO SCH (21:44)
[2017-10-16] MEDS ORDERED: SUVOREXANT 10 MG, SUVOREXANT 5 MG PO SCH (22:00)
[2017-10-16] MEDS ORDERED: SUVOREXANT 10 MG TABLET PO PRN (22:00)
[2017-10-17] MEDS: prednisoLONE ACETATE 1% OPHTH SUSP 5 ML BOTTLE OD SCH ×6 (03:34→22:47)
[2017-10-17] MEDS: GABAPENTIN 300 MG CAPSULE (FP) PO SCH ×3 (06:35→21:39)
[2017-10-17] MEDS: hydrOXYzine PAMOATE 50 MG CAPSULE (FP) PO PRN ×2 (06:35→15:21)
[2017-10-17] MEDS: IBUPROFEN 600 MG TABLET (FP) PO PRN ×2 (06:36→15:22)
[2017-10-17] MEDS: LACTULOSE 20 GM/30 ML UDC (FOR ORAL USE ONLY) PO SCH ×3 (06:38→21:38)
[2017-10-17] MEDS: OFLOXACIN 0.3% OPHTHALMIC SOLUTION 5 ML BOTTLE OD SCH ×5 (06:38→21:41)
--- NOTE | 2017-10-17 09:59 | PN ---
Psychiatric Progress Note Vital Signs: Vital Signs Period Temp Pulse Resp BP Sys/Brar Pulse Ox Last 24 Hr 97.6 F 70 18-18 133/86 Date of Session: 10/17/17 Chief Complaint:: Insomnia HPI: Patient addressing Alcohol Dependence comorbid with Opioid Abuse comorbid with Substance-Induced Anxiety Disorder and Substance-Induced Sleep Disorder ROS: Heart murmur, treatment for hepatitis C, history of pancreatitis, S/P laser surgery for cataract both eyes Current Medications: Active Medications Generic Name Dose Route Start Last Admin Trade Name Freq PRN Reason Stop Dose Admin Al Hydroxide/Mg Hydroxide 30 ml 09/29/17 14:38 10/04/17 06:24 Mylanta Oral Suspension - PO 30 ml Q6H PRN Administration DYSPEPSIA Bacitracin 0.9 gm 10/03/17 22:00 10/16/17 21:45 Bacitracin - TP 0.9 gm BID ALMA Administration Clotrimazole 1 applic 09/30/17 22:00 10/16/17 23:03 Lotrisone Cream (Large Tube) - TP 1 applic BID ALMA Administration Eucalyptus/Menthol/Phenol/Sorbitol 1 each 09/29/17 14:38 Cepastat Lozenge - MM Q4H PRN SORE THROAT Gabapentin 300 mg 10/13/17 14:45 10/17/17 06:35 Neurontin - PO 300 mg TID ALMA Administration Guaifenesin 10 ml 09/29/17 14:38 Robitussin Dm - PO Q6H PRN COUGH Hydroxyzine Pamoate 50 mg 09/29/17 14:38 10/17/17 06:35 Vistaril - PO 50 mg Q4H PRN Administration AGITATION Ibuprofen 600 mg 10/06/17 16:35 10/17/17 06:36 Motrin - PO 600 mg Q6H PRN Administration PAIN LEVEL 6-10 Lactulose 20 gm 10/14/17 22:00 10/17/17 06:38 Cephulac (Oral Use) PO 20 gm TID ALMA Administration Loperamide HCl 4 mg 09/29/17 14:38 Imodium - PO Q6H PRN DIARRHEA Magnesium Citrate 300 ml 09/29/17 14:38 Citroma - PO Q48H PRN CONSTIPATION Magnesium Hydroxide 30 ml 09/29/17 14:38 Milk Of Magnesia - PO DAILY PRN CONSTIPATION Ofloxacin 1 drop 09/29/17 18:00 10/17/17 06:38 Ocuflox 0.3% Eye Drops - OD 1 drop Q4HWA ALMA Administration Prednisolone Acetate 2 drop 09/29/17 15:00 10/17/17 06:38 Pred Forte 1% - OD 2 drop Q4H ALMA Administration Multivit/Folic Acid/Iron 1 tab 09/30/17 10:00 10/16/17 10:20 Vitamins (Sjr) - PO 1 tab DAILY ALMA Administration Pseudoephedrine/Triprolidine 1 combo 09/29/17 14:38 Actifed - PO TID PRN NASAL CONGESTION Suvorexant 15 mg 10/16/17 22:00 Belsomra PO HS PRN INSOMNIA Thiamine HCl 100 mg 09/29/17 22:00 10/16/17 21:44 Vitamin B1 - PO 100 mg HS ALMA Administration Current Side Effect: No Lab tests ordered: Yes Lab tests reviewed: Yes Provider note:: Patient continues to complain experiencing difficulty to sleep despite taking Belsomra 15 mg po HS. Discussed hypnotics as well as adverse- effects of Trazadone with patient and he agreed to try it Total face to face time:: 15 Mental Status Exam - Mental Status Exam Alert and Oriented to: Time, Place, Person Cognitive Function: Fair Patient Appearance: Well Groomed Mood: Hopeful, Euthymic Affect: Appropriate Patient Behavior: Cooperative Speech Pattern: Clear Voice Loudness: Normal Thought Process: Intact, Goal Oriented Thought Disorder: Not Present Hallucinations: Denies Suicidal Ideation: Denies Homicidal Ideation: Denies Insight/Judgement: Fair Sleep: Poorly Appetite: Good Muscle strength/Tone: Normal Gait/Station: Normal Psychiatric Treatment Plan - Problem List (1) Alcohol dependence Current Visit: Yes (2) Opioid abuse Current Visit: Yes (3) Substance-induced anxiety disorder Current Visit: Yes (4) Substance-induced sleep disorder Current Visit: Yes (5) History of pancreatitis Current Visit: No (6) Cirrhosis Current Visit: No (7) Hx of hepatitis C Current Visit: No Initial treatment plan: 1) Start Trazadone 100 mg po HS for insomnia. 2) Momitor progress
[2017-10-17] MEDS: PRENATAL VITAMINS W/ FOLIC ACID TABLET (FP) PO SCH (10:19)
[2017-10-17] MEDS: BACITRACIN 0.9 GM PACKET TP SCH ×2 (10:19→21:38)
[2017-10-17] MEDS: CLOTRIMAZOLE/BETAMET DIPROP TOPICAL CREAM 45 GM TUBE TP SCH ×2 (10:21→22:47)
[2017-10-17] MEDS ORDERED: SUVOREXANT 10 MG, SUVOREXANT 5 MG PO PRN (21:23)
[2017-10-17] MEDS ORDERED: SUVOREXANT 5 MG TABLET ONE (21:37)
[2017-10-17] MEDS ORDERED: SUVOREXANT 10 MG TABLET PO ONE (21:37)
[2017-10-17] MEDS: SUVOREXANT 10 MG, SUVOREXANT 5 MG PO PRN (21:38)
[2017-10-17] MEDS: THIAMINE HCL 100 MG TABLET (FP) PO SCH (21:39)
[2017-10-17] MEDS: traZODone HCL 100 MG TABLET (FP) PO SCH (21:39)
[2017-10-18] MEDS: prednisoLONE ACETATE 1% OPHTH SUSP 5 ML BOTTLE OD SCH ×6 (03:12→22:04)
[2017-10-18] MEDS: LACTULOSE 20 GM/30 ML UDC (FOR ORAL USE ONLY) PO SCH ×3 (06:20→21:28)
[2017-10-18] MEDS: GABAPENTIN 300 MG CAPSULE (FP) PO SCH ×3 (06:21→21:28)
[2017-10-18] MEDS: hydrOXYzine PAMOATE 50 MG CAPSULE (FP) PO PRN ×4 (06:21→21:28)
[2017-10-18] MEDS: IBUPROFEN 600 MG TABLET (FP) PO PRN ×3 (06:21→21:28)
[2017-10-18] MEDS: OFLOXACIN 0.3% OPHTHALMIC SOLUTION 5 ML BOTTLE OD SCH ×5 (06:32→21:40)
[2017-10-18] MEDS: PRENATAL VITAMINS W/ FOLIC ACID TABLET (FP) PO SCH (10:09)
[2017-10-18] MEDS: CLOTRIMAZOLE/BETAMET DIPROP TOPICAL CREAM 45 GM TUBE TP SCH ×2 (10:09→21:41)
[2017-10-18] MEDS: BACITRACIN 0.9 GM PACKET TP SCH ×2 (10:10→21:28)
[2017-10-18] MEDS: traZODone HCL 100 MG TABLET (FP) PO SCH (21:28)
[2017-10-18] MEDS: THIAMINE HCL 100 MG TABLET (FP) PO SCH (21:41)
[2017-10-19] MEDS: prednisoLONE ACETATE 1% OPHTH SUSP 5 ML BOTTLE OD SCH ×6 (03:00→23:11)
[2017-10-19] MEDS: OFLOXACIN 0.3% OPHTHALMIC SOLUTION 5 ML BOTTLE OD SCH ×5 (06:00→21:47)
[2017-10-19] MEDS: IBUPROFEN 600 MG TABLET (FP) PO PRN ×2 (06:19→14:27)
[2017-10-19] MEDS: GABAPENTIN 300 MG CAPSULE (FP) PO SCH ×3 (06:19→21:49)
[2017-10-19] MEDS: hydrOXYzine PAMOATE 50 MG CAPSULE (FP) PO PRN ×2 (06:20→21:48)
[2017-10-19] MEDS: LACTULOSE 20 GM/30 ML UDC (FOR ORAL USE ONLY) PO SCH ×3 (06:21→21:47)
[2017-10-19] MEDS: PRENATAL VITAMINS W/ FOLIC ACID TABLET (FP) PO SCH (10:24)
[2017-10-19] MEDS: BACITRACIN 0.9 GM PACKET TP SCH ×2 (10:24→21:47)
[2017-10-19] MEDS: CLOTRIMAZOLE/BETAMET DIPROP TOPICAL CREAM 45 GM TUBE TP SCH ×2 (10:25→21:55)
--- NOTE | 2017-10-19 10:35 | PN ---
Psychiatric Progress Note Vital Signs: Vital Signs Period Temp Pulse Resp BP Sys/Brar Pulse Ox Last 24 Hr 98 F 67 16-18 134/83 Date of Session: 10/19/17 Chief Complaint:: Medication management HPI: Patient addressing Alcohol Dependence comorbid with Opioid Abuse comorbid with Substance-Induced Anxiety Disorder and Substance-Induced Sleep Disorder ROS: Heart murmur, treatment for hepatitis C, history of pancreatitis, S/P laser surgery for cataract both eyes Current Medications: Active Medications Generic Name Dose Route Start Last Admin Trade Name Freq PRN Reason Stop Dose Admin Acamprosate 666 mg 10/19/17 14:00 Campral - PO TID ALMA Al Hydroxide/Mg Hydroxide 30 ml 09/29/17 14:38 10/04/17 06:24 Mylanta Oral Suspension - PO 30 ml Q6H PRN Administration DYSPEPSIA Bacitracin 0.9 gm 10/03/17 22:00 10/19/17 10:24 Bacitracin - TP 0.9 gm BID ALMA Administration Clotrimazole 1 applic 09/30/17 22:00 10/19/17 10:25 Lotrisone Cream (Large Tube) - TP 1 applic BID ALMA Administration Eucalyptus/Menthol/Phenol/Sorbitol 1 each 09/29/17 14:38 Cepastat Lozenge - MM Q4H PRN SORE THROAT Gabapentin 300 mg 10/13/17 14:45 10/19/17 06:19 Neurontin - PO 300 mg TID ALMA Administration Guaifenesin 10 ml 09/29/17 14:38 Robitussin Dm - PO Q6H PRN COUGH Hydroxyzine Pamoate 50 mg 09/29/17 14:38 10/19/17 06:20 Vistaril - PO 50 mg Q4H PRN Administration AGITATION Ibuprofen 600 mg 10/06/17 16:35 10/19/17 06:19 Motrin - PO 600 mg Q6H PRN Administration PAIN LEVEL 6-10 Lactulose 20 gm 10/14/17 22:00 10/19/17 06:21 Cephulac (Oral Use) PO 20 gm TID ALMA Administration Loperamide HCl 4 mg 09/29/17 14:38 Imodium - PO Q6H PRN DIARRHEA Magnesium Citrate 300 ml 09/29/17 14:38 Citroma - PO Q48H PRN CONSTIPATION Magnesium Hydroxide 30 ml 09/29/17 14:38 Milk Of Magnesia - PO DAILY PRN CONSTIPATION Ofloxacin 1 drop 09/29/17 18:00 10/19/17 10:24 Ocuflox 0.3% Eye Drops - OD 1 drop Q4HWA ALMA Administration Prednisolone Acetate 2 drop 09/29/17 15:00 10/19/17 10:24 Pred Forte 1% - OD 2 drop Q4H ALMA Administration Multivit/Folic Acid/Iron 1 tab 09/30/17 10:00 10/19/17 10:24 Vitamins (Sjr) - PO 1 tab DAILY ALMA Administration Pseudoephedrine/Triprolidine 1 combo 09/29/17 14:38 Actifed - PO TID PRN NASAL CONGESTION Suvorexant 10 mg/ Suvorexant 5 15 mg 10/17/17 22:00 10/17/17 21:38 mg PO 15 mg HS PRN Administration INSOMNIA Thiamine HCl 100 mg 09/29/17 22:00 10/18/17 21:41 Vitamin B1 - PO 100 mg HS ALMA Administration Trazodone HCl 100 mg 10/17/17 22:00 10/18/17 21:28 Desyrel - PO 100 mg HS ALMA Administration Medication(s) Change(s): Start Acamprosate 666 mg po TID Current Side Effect: No Lab tests ordered: Yes Lab tests reviewed: Yes (BUN 12, creatinine 0.9 on 10/10/17) Provider note:: Patient seen on a referral from nursing staff. During nursing education group, he was presented to Acamprosate and he believes the drug can help with alcohol craving. Patient was given a litterature about the medication and copy writer went over it with him. He shows understanding of the lecture and all his questions were answered. Patient has no kidney problem(BUN:12; Creatinine: 0.9) Total face to face time:: 25 Mental Status Exam - Mental Status Exam Alert and Oriented to: Time, Place, Person Cognitive Function: Fair Patient Appearance: Well Groomed Mood: Hopeful, Euthymic Affect: Appropriate Patient Behavior: Cooperative Speech Pattern: Clear Voice Loudness: Normal Thought Process: Intact, Goal Oriented Thought Disorder: Not Present Hallucinations: Denies Suicidal Ideation: Denies Homicidal Ideation: Denies Insight/Judgement: Fair Sleep: Fair Appetite: Good Muscle strength/Tone: Normal Gait/Station: Normal Psychiatric Treatment Plan - Problem List (1) Alcohol dependence Current Visit: Yes (2) Opioid abuse Current Visit: Yes (3) Substance-induced anxiety disorder Current Visit: Yes (4) Substance-induced sleep disorder Current Visit: Yes (5) History of pancreatitis Current Visit: No (6) Cirrhosis Current Visit: No (7) Hx of hepatitis C Current Visit: No Initial treatment plan: 1) Start Acamprosate 666 mg po TID. 2) Monitor progress
[2017-10-19] MEDS: ACAMPROSATE CALCIUM 333 MG TABLET.DR PO SCH ×2 (14:28→21:48)
[2017-10-19] MEDS ORDERED: SUVOREXANT 10 MG TABLET PO ONE (19:49)
[2017-10-19] MEDS ORDERED: SUVOREXANT 5 MG TABLET ONE (19:49)
[2017-10-19] MEDS: traZODone HCL 100 MG TABLET (FP) PO SCH (21:48)
[2017-10-19] MEDS: SUVOREXANT 10 MG, SUVOREXANT 5 MG PO PRN (21:48)
[2017-10-19] MEDS: THIAMINE HCL 100 MG TABLET (FP) PO SCH (21:50)
[2017-10-20] MEDS: OFLOXACIN 0.3% OPHTHALMIC SOLUTION 5 ML BOTTLE OD SCH ×4 (10:48→23:09)
[2017-10-20] MEDS: prednisoLONE ACETATE 1% OPHTH SUSP 5 ML BOTTLE OD SCH ×5 (10:48→23:09)
[2017-10-20] MEDS: BACITRACIN 0.9 GM PACKET TP SCH ×2 (10:48→21:54)
[2017-10-20] MEDS: PRENATAL VITAMINS W/ FOLIC ACID TABLET (FP) PO SCH (10:48)
[2017-10-20] MEDS: CLOTRIMAZOLE/BETAMET DIPROP TOPICAL CREAM 45 GM TUBE TP SCH ×2 (10:49→21:55)
[2017-10-20] MEDS: hydrOXYzine PAMOATE 50 MG CAPSULE (FP) PO PRN ×3 (10:51→21:58)
[2017-10-20] MEDS: GABAPENTIN 300 MG CAPSULE (FP) PO SCH ×3 (11:16→21:54)
[2017-10-20] MEDS: LACTULOSE 20 GM/30 ML UDC (FOR ORAL USE ONLY) PO SCH ×3 (11:16→21:54)
[2017-10-20] MEDS: ACAMPROSATE CALCIUM 333 MG TABLET.DR PO SCH ×3 (11:16→21:54)
[2017-10-20] MEDS: IBUPROFEN 600 MG TABLET (FP) PO PRN ×2 (14:31→21:57)
[2017-10-20] MEDS: THIAMINE HCL 100 MG TABLET (FP) PO SCH (21:54)
[2017-10-20] MEDS: traZODone HCL 100 MG TABLET (FP) PO SCH (21:55)
[2017-10-20] MEDS: SUVOREXANT 15 MG TABLET PO PRN (22:01)
[2017-10-21] MEDS: prednisoLONE ACETATE 1% OPHTH SUSP 5 ML BOTTLE OD SCH ×6 (03:04→22:00)
[2017-10-21] MEDS: LACTULOSE 20 GM/30 ML UDC (FOR ORAL USE ONLY) PO SCH ×3 (06:38→22:01)
[2017-10-21] MEDS: ACAMPROSATE CALCIUM 333 MG TABLET.DR PO SCH ×3 (06:39→23:50)
[2017-10-21] MEDS: OFLOXACIN 0.3% OPHTHALMIC SOLUTION 5 ML BOTTLE OD SCH ×5 (06:39→22:00)
[2017-10-21] MEDS: GABAPENTIN 300 MG CAPSULE (FP) PO SCH ×3 (06:39→22:00)
[2017-10-21] MEDS: IBUPROFEN 600 MG TABLET (FP) PO PRN ×3 (06:39→22:04)
[2017-10-21] MEDS: hydrOXYzine PAMOATE 50 MG CAPSULE (FP) PO PRN (06:39)
[2017-10-21] MEDS: BACITRACIN 0.9 GM PACKET TP SCH ×2 (10:08→22:01)
[2017-10-21] MEDS: PRENATAL VITAMINS W/ FOLIC ACID TABLET (FP) PO SCH (10:08)
[2017-10-21] MEDS: CLOTRIMAZOLE/BETAMET DIPROP TOPICAL CREAM 45 GM TUBE TP SCH ×2 (10:09→23:51)
[2017-10-21] MEDS: THIAMINE HCL 100 MG TABLET (FP) PO SCH (22:00)
[2017-10-21] MEDS: traZODone HCL 100 MG TABLET (FP) PO SCH (22:01)
[2017-10-21] MEDS: SUVOREXANT 15 MG TABLET PO PRN (22:04)
[2017-10-22] MEDS: prednisoLONE ACETATE 1% OPHTH SUSP 5 ML BOTTLE OD SCH ×6 (03:11→22:04)
[2017-10-22] MEDS: IBUPROFEN 600 MG TABLET (FP) PO PRN ×2 (06:12→14:16)
[2017-10-22] MEDS: OFLOXACIN 0.3% OPHTHALMIC SOLUTION 5 ML BOTTLE OD SCH ×5 (06:12→22:05)
[2017-10-22] MEDS: LACTULOSE 20 GM/30 ML UDC (FOR ORAL USE ONLY) PO SCH ×3 (06:12→22:01)
[2017-10-22] MEDS: hydrOXYzine PAMOATE 50 MG CAPSULE (FP) PO PRN ×3 (06:12→14:15)
[2017-10-22] MEDS: ACAMPROSATE CALCIUM 333 MG TABLET.DR PO SCH ×3 (06:12→22:01)
[2017-10-22] MEDS: GABAPENTIN 300 MG CAPSULE (FP) PO SCH ×3 (06:12→22:01)
[2017-10-22] MEDS: BACITRACIN 0.9 GM PACKET TP SCH ×2 (09:55→22:00)
[2017-10-22] MEDS: PRENATAL VITAMINS W/ FOLIC ACID TABLET (FP) PO SCH (09:55)
[2017-10-22] MEDS: CLOTRIMAZOLE/BETAMET DIPROP TOPICAL CREAM 45 GM TUBE TP SCH ×2 (09:58→23:24)
[2017-10-22] MEDS ORDERED: PT OWN MED DRAWER 7, Y5N ONE (16:43)
[2017-10-22] MEDS: THIAMINE HCL 100 MG TABLET (FP) PO SCH (22:01)
[2017-10-22] MEDS: traZODone HCL 100 MG TABLET (FP) PO SCH (22:01)
[2017-10-22] MEDS: SUVOREXANT 15 MG TABLET PO PRN (22:03)
[2017-10-23] MEDS: prednisoLONE ACETATE 1% OPHTH SUSP 5 ML BOTTLE OD SCH ×6 (03:36→22:06)
[2017-10-23] MEDS: OFLOXACIN 0.3% OPHTHALMIC SOLUTION 5 ML BOTTLE OD SCH ×5 (06:19→22:05)
[2017-10-23] MEDS: ACAMPROSATE CALCIUM 333 MG TABLET.DR PO SCH ×3 (06:19→22:07)
[2017-10-23] MEDS: IBUPROFEN 600 MG TABLET (FP) PO PRN ×3 (06:19→22:10)
[2017-10-23] MEDS: LACTULOSE 20 GM/30 ML UDC (FOR ORAL USE ONLY) PO SCH ×3 (06:19→22:07)
[2017-10-23] MEDS: GABAPENTIN 300 MG CAPSULE (FP) PO SCH ×3 (06:19→22:08)
[2017-10-23] MEDS: hydrOXYzine PAMOATE 50 MG CAPSULE (FP) PO PRN ×4 (06:19→22:11)
[2017-10-23] MEDS ORDERED: PT OWN MED DRAWER 7, Y5N ONE (09:09)
[2017-10-23] MEDS: PRENATAL VITAMINS W/ FOLIC ACID TABLET (FP) PO SCH (10:21)
[2017-10-23] MEDS: BACITRACIN 0.9 GM PACKET TP SCH ×2 (10:22→22:07)
[2017-10-23] MEDS: CLOTRIMAZOLE/BETAMET DIPROP TOPICAL CREAM 45 GM TUBE TP SCH ×2 (10:22→22:12)
[2017-10-23] MEDS: THIAMINE HCL 100 MG TABLET (FP) PO SCH (22:06)
[2017-10-23] MEDS: traZODone HCL 100 MG TABLET (FP) PO SCH (22:08)
[2017-10-23] MEDS: SUVOREXANT 5 MG TABLET PO PRN (22:08)
[2017-10-24] MEDS: prednisoLONE ACETATE 1% OPHTH SUSP 5 ML BOTTLE OD SCH ×6 (03:00→22:31)
[2017-10-24] MEDS: OFLOXACIN 0.3% OPHTHALMIC SOLUTION 5 ML BOTTLE OD SCH ×5 (06:00→22:03)
[2017-10-24] MEDS: IBUPROFEN 600 MG TABLET (FP) PO PRN ×3 (06:34→22:02)
[2017-10-24] MEDS: GABAPENTIN 300 MG CAPSULE (FP) PO SCH ×3 (06:35→22:03)
[2017-10-24] MEDS: ACAMPROSATE CALCIUM 333 MG TABLET.DR PO SCH ×3 (06:35→22:01)
[2017-10-24] MEDS: hydrOXYzine PAMOATE 50 MG CAPSULE (FP) PO PRN ×3 (06:35→15:48)
[2017-10-24] MEDS: LACTULOSE 20 GM/30 ML UDC (FOR ORAL USE ONLY) PO SCH ×3 (06:35→22:02)
[2017-10-24] MEDS ORDERED: PT OWN MED DRAWER 7, Y5N ONE ×2 (09:10→09:11)
[2017-10-24] MEDS: CLOTRIMAZOLE/BETAMET DIPROP TOPICAL CREAM 45 GM TUBE TP SCH ×2 (11:09→22:03)
[2017-10-24] MEDS: PRENATAL VITAMINS W/ FOLIC ACID TABLET (FP) PO SCH (11:10)
[2017-10-24] MEDS: BACITRACIN 0.9 GM PACKET TP SCH ×2 (11:11→21:59)
[2017-10-24] MEDS: traZODone HCL 100 MG TABLET (FP) PO SCH (22:02)
[2017-10-24] MEDS: SUVOREXANT 5 MG TABLET PO PRN (22:02)
[2017-10-24] MEDS: THIAMINE HCL 100 MG TABLET (FP) PO SCH (22:03)
[2017-10-25] MEDS: prednisoLONE ACETATE 1% OPHTH SUSP 5 ML BOTTLE OD SCH ×6 (03:00→23:09)
[2017-10-25] MEDS: IBUPROFEN 600 MG TABLET (FP) PO PRN (06:26)
[2017-10-25] MEDS: GABAPENTIN 300 MG CAPSULE (FP) PO SCH ×3 (06:26→21:55)
[2017-10-25] MEDS: LACTULOSE 20 GM/30 ML UDC (FOR ORAL USE ONLY) PO SCH ×3 (06:26→21:54)
[2017-10-25] MEDS: ACAMPROSATE CALCIUM 333 MG TABLET.DR PO SCH ×3 (06:26→21:55)
[2017-10-25] MEDS: hydrOXYzine PAMOATE 50 MG CAPSULE (FP) PO PRN ×4 (06:27→21:55)
[2017-10-25] MEDS: OFLOXACIN 0.3% OPHTHALMIC SOLUTION 5 ML BOTTLE OD SCH ×5 (06:39→21:56)
[2017-10-25] MEDS ORDERED: PT OWN MED DRAWER 7, Y5N ONE (09:12)
[2017-10-25] MEDS: CLOTRIMAZOLE/BETAMET DIPROP TOPICAL CREAM 45 GM TUBE TP SCH ×2 (10:46→21:57)
[2017-10-25] MEDS: BACITRACIN 0.9 GM PACKET TP SCH ×2 (10:46→21:54)
[2017-10-25] MEDS: PRENATAL VITAMINS W/ FOLIC ACID TABLET (FP) PO SCH (10:46)
[2017-10-25] MEDS: SUVOREXANT 5 MG TABLET PO PRN (21:55)
[2017-10-25] MEDS: traZODone HCL 100 MG TABLET (FP) PO SCH (21:55)
[2017-10-25] MEDS: THIAMINE HCL 100 MG TABLET (FP) PO SCH (21:57)
[2017-10-26] MEDS: prednisoLONE ACETATE 1% OPHTH SUSP 5 ML BOTTLE OD SCH ×6 (03:00→23:52)
[2017-10-26] MEDS: OFLOXACIN 0.3% OPHTHALMIC SOLUTION 5 ML BOTTLE OD SCH ×5 (06:00→22:07)
[2017-10-26] MEDS: ACAMPROSATE CALCIUM 333 MG TABLET.DR PO SCH ×3 (06:08→22:06)
[2017-10-26] MEDS: GABAPENTIN 300 MG CAPSULE (FP) PO SCH ×3 (06:08→22:06)
[2017-10-26] MEDS: LACTULOSE 20 GM/30 ML UDC (FOR ORAL USE ONLY) PO SCH ×3 (06:08→22:05)
[2017-10-26] MEDS: IBUPROFEN 600 MG TABLET (FP) PO PRN ×2 (06:09→14:09)
[2017-10-26] MEDS: hydrOXYzine PAMOATE 50 MG CAPSULE (FP) PO PRN ×4 (06:09→22:06)
--- NOTE | 2017-10-26 06:50 | PN ---
Psychiatric Progress Note Vital Signs: Vital Signs Period Temp Pulse Resp BP Sys/Brar Pulse Ox Last 24 Hr 97.5 F 75 18-18 129/82 Date of Session: 10/26/17 Chief Complaint:: Discharge Note HPI: Patient addressing Alcohol Dependence and Opioid Abuse, Substance-Induced Anxiety Disorder and Substance-Induced Sleep Disorder ROS: Hep C, H/O Pancreatitis Current Medications: Active Medications Generic Name Dose Route Start Last Admin Trade Name Freq PRN Reason Stop Dose Admin Acamprosate 666 mg 10/19/17 14:00 10/26/17 06:08 Campral - PO 666 mg TID ALMA Administration Al Hydroxide/Mg Hydroxide 30 ml 09/29/17 14:38 10/04/17 06:24 Mylanta Oral Suspension - PO 30 ml Q6H PRN Administration DYSPEPSIA Bacitracin 0.9 gm 10/03/17 22:00 10/25/17 21:54 Bacitracin - TP 0.9 gm BID ALMA Administration Clotrimazole 1 applic 09/30/17 22:00 10/25/17 21:57 Lotrisone Cream (Large Tube) - TP 1 applic BID ALMA Administration Eucalyptus/Menthol/Phenol/Sorbitol 1 each 09/29/17 14:38 Cepastat Lozenge - MM Q4H PRN SORE THROAT Gabapentin 300 mg 10/13/17 14:45 10/26/17 06:08 Neurontin - PO 300 mg TID ALMA Administration Guaifenesin 10 ml 09/29/17 14:38 Robitussin Dm - PO Q6H PRN COUGH Hydroxyzine Pamoate 50 mg 09/29/17 14:38 10/26/17 06:09 Vistaril - PO 50 mg Q4H PRN Administration AGITATION Ibuprofen 600 mg 10/06/17 16:35 10/26/17 06:09 Motrin - PO 600 mg Q6H PRN Administration PAIN LEVEL 6-10 Lactulose 20 gm 10/14/17 22:00 10/26/17 06:08 Cephulac (Oral Use) PO 20 gm TID ALMA Administration Loperamide HCl 4 mg 09/29/17 14:38 Imodium - PO Q6H PRN DIARRHEA Magnesium Citrate 300 ml 09/29/17 14:38 Citroma - PO Q48H PRN CONSTIPATION Magnesium Hydroxide 30 ml 09/29/17 14:38 Milk Of Magnesia - PO DAILY PRN CONSTIPATION Ofloxacin 1 drop 09/29/17 18:00 10/25/17 21:56 Ocuflox 0.3% Eye Drops - OD 1 drop Q4HWA ALMA Administration Prednisolone Acetate 2 drop 09/29/17 15:00 10/26/17 03:00 Pred Forte 1% - OD Not Given Q4H ALMA Multivit/Folic Acid/Iron 1 tab 09/30/17 10:00 10/25/17 10:46 Vitamins (Sjr) - PO 1 tab DAILY ALMA Administration Pseudoephedrine/Triprolidine 1 combo 09/29/17 14:38 Actifed - PO TID PRN NASAL CONGESTION Suvorexant 15 mg 10/23/17 22:00 10/25/17 21:55 Belsomra PO 10/30/17 23:59 15 mg HS PRN Administration INSOMNIA Suvorexant 15 mg 10/26/17 22:00 Belsomra PO HS PRN INSOMNIA Thiamine HCl 100 mg 09/29/17 22:00 10/25/17 21:57 Vitamin B1 - PO 100 mg HS ALMA Administration Trazodone HCl 100 mg 10/17/17 22:00 10/25/17 21:55 Desyrel - PO 100 mg HS ALMA Administration Current Side Effect: No Lab tests ordered: Yes Lab tests reviewed: Yes Provider note:: Patient will complete this program on 10/27/17. He has met his treatment goals and will continue to address her issues at outpatient treatment at [facility] at [address] [place] [address]. Told typewriter repairer that from his participation in this program, he has gained insight into his addiction and has learned the lifestyle changes he has to do. He responded well to Trazadone 100 mg po HS, Gabapentin 300 mg po TID and Campral 666 mg po TID. Scripts for 30 days supply of these medications will be electronically transmitted to [facility] at [address] [place] [address]. He is stable for discharge on 10/27/17 Total face to face time:: 35 Mental Status Exam - Mental Status Exam Alert and Oriented to: Time, Place, Person Cognitive Function: Fair Mood: Hopeful, Euthymic Affect: Appropriate Patient Behavior: Cooperative Speech Pattern: Clear Voice Loudness: Normal Thought Process: Intact, Goal Oriented Thought Disorder: Not Present Hallucinations: Denies Suicidal Ideation: Denies Homicidal Ideation: Denies Insight/Judgement: Fair Sleep: Fair Appetite: Good Muscle strength/Tone: Normal Gait/Station: Normal Psychiatric Treatment Plan - Problem List (1) Alcohol dependence Current Visit: Yes (2) Opioid abuse Current Visit: Yes (3) Substance-induced anxiety disorder Current Visit: Yes (4) Substance-induced sleep disorder Current Visit: Yes (5) History of pancreatitis Current Visit: No (6) Cirrhosis Current Visit: No (7) Hx of hepatitis C Current Visit: No Initial treatment plan: Patient will be discharged tomorrow and referred to [facility] for outpatient treatment
[2017-10-26] MEDS: BACITRACIN 0.9 GM PACKET TP SCH ×2 (10:35→22:05)
[2017-10-26] MEDS: PRENATAL VITAMINS W/ FOLIC ACID TABLET (FP) PO SCH (10:35)
[2017-10-26] MEDS: CLOTRIMAZOLE/BETAMET DIPROP TOPICAL CREAM 45 GM TUBE TP SCH ×2 (10:39→22:07)
--- NOTE | 2017-10-26 14:56 | PN ---
[facility] Progress Note Note: Patient c/o left elbow redness and swelling. Denies pain to left elbow. Able to move arm freely. Denies recent falls and/or injury. Vital Signs Temperature 97.7 F 10/26/17 07:18 Pulse Rate 774 H 10/26/17 07:18 Respiratory Rate 18 10/26/17 07:18 Blood Pressure 103/72 10/26/17 07:18 O2 Sat by Pulse Oximetry (%) Laboratory Tests 09/30/17 10/10/17 10/10/17 07:30 08:30 08:30 WBC 4.6 RBC 3.90 L Hgb 12.9 D Hct 37.3 MCV 95.7 MCH 33.1 MCHC 34.6 RDW 12.9 Plt Count 118 L D MPV 8.3 Absolute Neuts (auto) 3.4 Neutrophils % 72.9 Lymphocytes % 8.7 Monocytes % 12.8 H Eosinophils % 2.5 Basophils % 3.1 H Nucleated RBC % 0 Sodium 138 Potassium 5.9 H D Chloride 107 Carbon Dioxide 24 Anion Gap 7 L BUN 12 D Creatinine 0.9 D Creat Clearance w eGFR > 60 POC Glucometer Random Glucose 229 H D Hemoglobin A1c % Calcium 8.3 L Total Bilirubin 0.6 D AST 22 D ALT 33 D Alkaline Phosphatase 123 H Ammonia 41.29 H Total Protein 6.6 D Albumin 3.1 L 10/10/17 10/12/17 10/12/17 08:30 06:15 08:30 WBC RBC Hgb Hct MCV MCH MCHC RDW Plt Count MPV Absolute Neuts (auto) Neutrophils % Lymphocytes % Monocytes % Eosinophils % Basophils % Nucleated RBC % Sodium Potassium Chloride Carbon Dioxide Anion Gap BUN Creatinine Creat Clearance w eGFR POC Glucometer 115 Random Glucose Hemoglobin A1c % 6.3 H Calcium Total Bilirubin AST ALT Alkaline Phosphatase Ammonia 57.5 H Total Protein Albumin 10/12/17 10/12/17 10/13/17 08:30 09:15 06:28 WBC RBC Hgb Hct MCV MCH MCHC RDW Plt Count MPV Absolute Neuts (auto) Neutrophils % Lymphocytes % Monocytes % Eosinophils % Basophils % Nucleated RBC % Sodium Potassium 5.0 Chloride Carbon Dioxide Anion Gap BUN Creatinine Creat Clearance w eGFR POC Glucometer 117 Random Glucose Hemoglobin A1c % Calcium Total Bilirubin AST ALT Alkaline Phosphatase Ammonia 38.16 H Total Protein Albumin 10/14/17 10/14/17 10/15/17 06:50 07:30 06:11 WBC RBC Hgb Hct MCV MCH MCHC RDW Plt Count MPV Absolute Neuts (auto) Neutrophils % Lymphocytes % Monocytes % Eosinophils % Basophils % Nucleated RBC % Sodium Potassium Chloride Carbon Dioxide Anion Gap BUN Creatinine Creat Clearance w eGFR POC Glucometer 131 139 Random Glucose Hemoglobin A1c % Calcium Total Bilirubin AST ALT Alkaline Phosphatase Ammonia 93.7 H Total Protein Albumin 10/16/17 10/16/17 10/17/17 06:31 08:50 06:35 WBC RBC Hgb Hct MCV MCH MCHC RDW Plt Count MPV Absolute Neuts (auto) Neutrophils % Lymphocytes % Monocytes % Eosinophils % Basophils % Nucleated RBC % Sodium Potassium Chloride Carbon Dioxide Anion Gap BUN Creatinine Creat Clearance w eGFR POC Glucometer 129 136 Random Glucose Hemoglobin A1c % Calcium Total Bilirubin AST ALT Alkaline Phosphatase Ammonia 59.45 H Total Protein Albumin 10/18/17 10/19/17 10/20/17 06:24 06:19 07:04 WBC RBC Hgb Hct MCV MCH MCHC RDW Plt Count MPV Absolute Neuts (auto) Neutrophils % Lymphocytes % Monocytes % Eosinophils % Basophils % Nucleated RBC % Sodium Potassium Chloride Carbon Dioxide Anion Gap BUN Creatinine Creat Clearance w eGFR POC Glucometer 134 139 129 Random Glucose Hemoglobin A1c % Calcium Total Bilirubin AST ALT Alkaline Phosphatase Ammonia Total Protein Albumin 10/20/17 10/21/17 10/22/17 08:30 06:41 06:13 WBC RBC Hgb Hct MCV MCH MCHC RDW Plt Count MPV Absolute Neuts (auto) Neutrophils % Lymphocytes % Monocytes % Eosinophils % Basophils % Nucleated RBC % Sodium Potassium Chloride Carbon Dioxide Anion Gap BUN Creatinine Creat Clearance w eGFR POC Glucometer 126 131 Random Glucose Hemoglobin A1c % Calcium Total Bilirubin AST ALT Alkaline Phosphatase Ammonia 31.1 Total Protein Albumin 10/23/17 10/24/17 10/25/17 06:21 06:39 06:26 WBC RBC Hgb Hct MCV MCH MCHC RDW Plt Count MPV Absolute Neuts (auto) Neutrophils % Lymphocytes % Monocytes % Eosinophils % Basophils % Nucleated RBC % Sodium Potassium Chloride Carbon Dioxide Anion Gap BUN Creatinine Creat Clearance w eGFR POC Glucometer 139 126 127 Random Glucose Hemoglobin A1c % Calcium Total Bilirubin AST ALT Alkaline Phosphatase Ammonia Total Protein Albumin obj: general: alert and oriented x 3. In no acute distress. ' Skin: warm and dry Ext: left elbow redness and with mild swelling. No open areas noted. Full ROM of left upper extremity. Non-tender. a/p: Left elbow cellulitis Patient started on Keflex 250mg every 6 hours x 7 days cool compresses prn tylenol for pain prn continue to monitor clinically.
[2017-10-26] MEDS: CEPHALEXIN MONOHYDRATE 250 MG CAPSULE (FP) PO SCH (18:21)
[2017-10-26] MEDS ORDERED: SUVOREXANT 15 MG TABLET PO PRN (22:00)
[2017-10-26] MEDS: traZODone HCL 100 MG TABLET (FP) PO SCH (22:05)
[2017-10-26] MEDS: THIAMINE HCL 100 MG TABLET (FP) PO SCH (22:08)
[2017-10-27] MEDS: CEPHALEXIN MONOHYDRATE 250 MG CAPSULE (FP) PO SCH ×2 (00:52→06:09)
[2017-10-27] MEDS: prednisoLONE ACETATE 1% OPHTH SUSP 5 ML BOTTLE OD SCH ×2 (06:06→06:09)
[2017-10-27] MEDS: LACTULOSE 20 GM/30 ML UDC (FOR ORAL USE ONLY) PO SCH (06:08)
[2017-10-27] MEDS: IBUPROFEN 600 MG TABLET (FP) PO PRN (06:08)
[2017-10-27] MEDS: ACAMPROSATE CALCIUM 333 MG TABLET.DR PO SCH (06:09)
[2017-10-27] MEDS: OFLOXACIN 0.3% OPHTHALMIC SOLUTION 5 ML BOTTLE OD SCH (06:09)
[2017-10-27] MEDS: GABAPENTIN 300 MG CAPSULE (FP) PO SCH (06:09)
[2017-10-27] MEDS: hydrOXYzine PAMOATE 50 MG CAPSULE (FP) PO PRN (06:10)
[2017-10-27 07:19] VITALS: BP 119/80; PULSE 77; TEMP 97.9
[2017-10-27] MEDS ORDERED: PT OWN MED DRAWER 7, Y5N ONE (08:58)
== END 2017-10-27 09:20 | disposition home or self-care (01) | DRG 772 ==
LOC: YASAS 13:38 → Y3W 13:50
PROVIDERS: ADMIT Psychiatry & Neurology Psychiatry; ATTEND Psychiatry & Neurology Psychiatry
PROC: HZ42ZZZ Group Counseling for Substance Abuse Treatment, Cognitive-Behavioral (ICD-10-PCS; principal; 2017-09-29)
DX: F10.20 Alcohol dependence, uncomplicated (principal); F11.10 Opioid abuse, uncomplicated; F19.280 Other psychoactive substance dependence with psychoactive substance-induced anxiety disorder; F19.282 Other psychoactive substance dependence with psychoactive substance-induced sleep disorder; G44.209 Tension-type headache, unspecified, not intractable; E87.5 Hyperkalemia; Z87.19 Personal history of other diseases of the digestive system; Z86.19 Personal history of other infectious and parasitic diseases; R73.09 Other abnormal glucose; R89.9 Unspecified abnormal finding in specimens from other organs, systems and tissues; L03.90 Cellulitis, unspecified
CPT/HCPCS: 36415; 80053; 82140; 82962; 83036; 84132; 85025